=== PATIENT | male | born 1980 | race Caucasian/White ===

== ENCOUNTER 2017-06-15 07:54 | Emergency (ER) | payer BC, SELFPAY ==
[2017-06-15 07:54] VITALS: BP 161/97; PULSE 111; RESP 15; TEMP 35.9; BMI 28.0
--- NOTE | 2017-06-15 08:15 | ED.VISSUMM ---
- ER Visit Summary Date of Service: 06/15/17 Chief Complaint: [Rash to bilateral hands] History of Present Illness: The patient is a 36 M [presents to the emergency department with a rash to both hands that started about a week and a half ago. Patient is never had this happen before. Patient does have a history of psoriasis. 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 Patient did not directly handle the chemicals however there was fine residue throughout the workplace. Patient describes small vesicles on the fingers that break and use. Patient does have some itching to the area. Patient denies any trauma. Patient is never had this before.] Physical Examination: [HEENT-PERRLA, EOMI. Cranial nerves II through XII grossly intact. TMs clear. Mucous membranes moist. No adenopathy. Cardiovascular-regular rate and rhythm without murmur or ectopy Lungs-clear to auscultation, chest wall stable without crepitus or subcu emphysema Abdomen-normoactive bowel sounds, soft, nontender, no rebound or rigidity, no peritoneal signs. Extremities-intact ?4, normal range of motion, normal pulses, atraumatic]. Evaluation of the right hand reveals fine vesicles mustard seed like involving the right index and long finger. Vesicles rupture and then we put. Similar presentation noted to the left hand index finger and middle finger however to a lesser extent. No evidence for cellulitis noted. Appearance would be typical of a dyshidrotic eczema. Test Results: [None indicated] Emergency Department Course and Treatment: [Patient will be started on a topical steroid. Patient advised to follow-up with his supervisor carbon paper coating within the next 3-5 days.] Treatment Plan: [Topical steroid and dermatology follow-up]. Patient advised to keep hands moisturized. Disposition: [Discharged to home in stable condition] Impression: [Dyshidrotic eczema bilateral hands.] This note was generated with [employer] dictation software. It may contain incorrect words, spelling, and punctuation that were not noted in review of the chart prior to signing ED Disposition - Plan for ED Patient: Chief Complaint: Cellulitis
--- NOTE | 2017-06-15 08:18 | ED.DCSUM_ITS ---
- ER Visit Summary Date of Service: 06/15/17 Chief Complaint: [Rash to bilateral hands] History of Present Illness: The patient is a 36 M [presents to the emergency department with a rash to both hands that started about a week and a half ago. Patient is never had this happen before. Patient does have a history of psoriasis. 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 Patient did not directly handle the chemicals however there was fine residue throughout the workplace. Patient describes small vesicles on the fingers that break and use. Patient does have some itching to the area. Patient denies any trauma. Patient is never had this before.] Physical Examination: [HEENT-PERRLA, EOMI. Cranial nerves II through XII grossly intact. TMs clear. Mucous membranes moist. No adenopathy. Cardiovascular-regular rate and rhythm without murmur or ectopy Lungs-clear to auscultation, chest wall stable without crepitus or subcu emphysema Abdomen-normoactive bowel sounds, soft, nontender, no rebound or rigidity, no peritoneal signs. Extremities-intact ?4, normal range of motion, normal pulses, atraumatic]. Evaluation of the right hand reveals fine vesicles mustard seed like involving the right index and long finger. Vesicles rupture and then we put. Similar presentation noted to the left hand index finger and middle finger however to a lesser extent. No evidence for cellulitis noted. Appearance would be typical of a dyshidrotic eczema. Test Results: [None indicated] Emergency Department Course and Treatment: [Patient will be started on a topical steroid. Patient advised to follow-up with his travel occupational therapist within the next 3-5 days.] Treatment Plan: [Topical steroid and dermatology follow-up]. Patient advised to keep hands moisturized. Disposition: [Discharged to home in stable condition] Impression: [Dyshidrotic eczema bilateral hands.] This note was generated with [employer] dictation software. It may contain incorrect words, spelling, and punctuation that were not noted in review of the chart prior to signing ED Disposition - Plan for ED Patient: Chief Complaint: Cellulitis
--- NOTE | 2017-06-15 08:21 | DCINST.ED_ITS ---
ED Disposition - Plan for ED Patient: Chief Complaint: Cellulitis Instructions: ED Dermatitis Atopic Eczema Prescriptions: Mometasone Furoate [Elocon] 45 gm TP BID #1 oint...g. Additional Instructions: see your autobody technician in 3-5 days
== END 2017-06-15 08:33 | disposition home or self-care (01) ==
LOC: ED 08:22
PROVIDERS: Emergency Provider Emergency Medicine
DX: L30.1 Dyshidrosis [pompholyx] (principal); Z72.0 Tobacco use
CPT/HCPCS: 99282

== ENCOUNTER 2017-06-25 11:14 | Emergency (ER) | payer BC, SELFPAY ==
[2017-06-25 11:16] VITALS: BP 141/93; PULSE 85; RESP 17; TEMP 36.5; O2SAT 98; BMI 29.0
[2017-06-25 11:18] VITALS: BP 141/93; PULSE 91; RESP 17; TEMP 36.5; O2SAT 98
--- NOTE | 2017-06-25 11:36 | RAD_ITS ---
STUDY: X-RAY - RIGHT HAND REASON FOR EXAM: Male, 36 years old. Deformity of the second and third digits. Diffuse soft tissue swelling. TECHNIQUE: 3 view(s) of the hand. COMPARISON: None. FINDINGS: Normal radiocarpal articulation. Normal distal radioulnar joint. Normal visualized carpal bones. Normal carpal articulations Normal carpometacarpal articulation of the thumb. Normal second through fifth carpometacarpal joints. Normal metacarpi. Normal metacarpophalangeal joint of the thumb. Normal interphalangeal joint of the thumb. Normal proximal and distal phalanges of the thumb. Normal metacarpophalangeal joints of the second through fifth fingers. Flexion deformity at the proximal interphalangeal joint of the second and third digits. Normal phalanges of the second through fifth fingers. Soft tissue swelling. RAD/Hand Min 3 Views IMPRESSION: Diffuse soft tissue swelling. Flexion deformity at the proximal interphalangeal joints of the second and third digits. Electronically Signed: Hadley Magallon MD at 12:44 EDT Tel [phone], Service support ,
--- NOTE | 2017-06-25 13:51 | NURSING ---
DR AARON JOHNSON
--- NOTE | 2017-06-25 14:02 | ED.VISSUMM ---
- ER Visit Summary Date of Service: 06/25/17 Chief Complaint: Right hand infection History of Present Illness: The patient is a 36 M presenting secondary to right hand infection. Patient has an underlying history of psoriasis and takes Taltz. Patient states that approximately a week ago he was having a breakout of eczema on his hand. He was placed on some oral steroids and local steroids. Patient states that that rash had since improved, but over the course last 2-3 days he has had significant swelling and spreading redness coming from his right index finger going up the dorsum of his hand. Denies any presence of fevers. He does have some localized pain. 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 Physical Examination: Physical exam unremarkable except for right hand exam. Patient has chronic contractures of his index and long digits that he states are unchanged. He has limited range of motion. Patient has swelling over the proximal phalanx of the index finger with a pustule medially and spreading erythema going up to the wrist but not extending onto the wrist. No subcutaneous emphysema. Test Results: Right hand x-ray shows chronic changes in the bones as well as soft tissue swelling per radiology and my personal review Emergency Department Course and Treatment: Patient presented secondary to an infection in his right hand. X-rays showed no evidence of osteomyelitis. Patient's hand was anesthetized using digital block and then was prepped with Betadine. A tourniquet was placed around the finger, and an 11 blade was used to incise over the greatest area of purulence. Moderate amount of purulent material was expressed and was sent for culture. Wound was not vigorously explored with hemostats, but was opened with hemostats mildly. It was irrigated with sterile saline was left open. Tourniquet was removed. Patient tolerated this well. Given the fact that the patient is on immunotherapy, I do not feel comfortable with full dissection across the pulp of the patient's finger and I believe that he would best be followed up by plastic surgery. I discussed this with Dr. Alva. Patient will be placed on Bactrim, and instructed to follow-up with plastic surgery. Disposition: Discharge Impression: 1. Right index finger abscess with cellulitis 2. Incision and drainage This note was generated with [employer] software. It may contain incorrect words, spelling, and punctuation that were not noted in review of the chart prior to signing ED Disposition - Plan for ED Patient: Disposition: Home or Assisted Living Chief Complaint: Cellulitis Diagnosis: Abscess Instructions: ED Abscess IandD Prescriptions: Smz/Tmp Ds [Bactrim Ds] 1 tab PO BID #20 tab Referrals: Daniel Alva MD [STAFF PHYSICIAN] - (Call tomorrow to be seen by Friday. Return to the ED if you have fevers or spreading redness)
--- NOTE | 2017-06-25 14:08 | ED.DCSUM_ITS ---
- ER Visit Summary Date of Service: 06/25/17 Chief Complaint: Right hand infection History of Present Illness: The patient is a 36 M presenting secondary to right hand infection. Patient has an underlying history of psoriasis and takes Taltz. Patient states that approximately a week ago he was having a breakout of eczema on his hand. He was placed on some oral steroids and local steroids. Patient states that that rash had since improved, but over the course last 2- 3 days he has had significant swelling and spreading redness coming from his right index finger going up the dorsum of his hand. Denies any presence of fevers. He does have some localized pain. Patient saw his critical care technician recommended to them emergency department. Physical Examination: Physical exam unremarkable except for right hand exam. Patient has chronic contractures of his index and long digits that he states are unchanged. He has limited range of motion. Patient has swelling over the proximal phalanx of the index finger with a pustule medially and spreading erythema going up to the wrist but not extending onto the wrist. No subcutaneous emphysema. Test Results: Right hand x-ray shows chronic changes in the bones as well as soft tissue swelling per radiology and my personal review Emergency Department Course and Treatment: Patient presented secondary to an infection in his right hand. X-rays showed no evidence of osteomyelitis. Patient's hand was anesthetized using digital block and then was prepped with Betadine. A tourniquet was placed around the finger, and an 11 blade was used to incise over the greatest area of purulence. Moderate amount of purulent material was expressed and was sent for culture. Wound was not vigorously explored with hemostats, but was opened with hemostats mildly. It was irrigated with sterile saline was left open. Tourniquet was removed. Patient tolerated this well. Given the fact that the patient is on immunotherapy, I do not feel comfortable with full dissection across the pulp of the patient's finger and I believe that he would best be followed up by plastic surgery. I discussed this with Dr. Alva. Patient will be placed on Bactrim, and instructed to follow-up with plastic surgery. Disposition: Discharge Impression: 1. Right index finger abscess with cellulitis 2. Incision and drainage This note was generated with [employer] software. It may contain incorrect words, spelling, and punctuation that were not noted in review of the chart prior to signing ED Disposition - Plan for ED Patient: Disposition: Home or Assisted Living Chief Complaint: Cellulitis Diagnosis: Abscess Instructions: ED Abscess IandD Prescriptions: Smz/Tmp Ds [Bactrim Ds] 1 tab PO BID #20 tab Referrals: Daniel Alva MD [STAFF PHYSICIAN] - (Call tomorrow to be seen by Friday. Return to the ED if you have fevers or spreading redness)
[2017-06-25] MEDS: Smz/Tmp Ds Tablet 1 TABLET PO (14:25)
[2017-06-25 14:41] VITALS: BP 138/70; PULSE 74; RESP 18; O2SAT 98; O2SAT 99
== END 2017-06-25 14:44 | disposition home or self-care (01) ==
PROVIDERS: Emergency Provider Emergency Medicine
DX: L03.011 Cellulitis of right finger (principal); L40.9 Psoriasis, unspecified
CPT/HCPCS: 26010; 10060; 73130; 87070; 87075; 87077; 87186; 87205; 99283

== ENCOUNTER 2017-06-26 23:34 | Inpatient (IN) | payer BC, SELFPAY ==
[2017-06-26 23:34] VITALS: BP 156/94; PULSE 89; RESP 20; TEMP 36.6; O2SAT 94; BMI 28.9
[2017-06-27] VITALS (10 sets, daily range): BP systolic 127–156; BP diastolic 69–91; PULSE 79–98; RESP 16–18; TEMP 36.5–37.4; O2SAT 94–98; BMI 28.8
[2017-06-27 00:10] LABS: Absolute Lymphocyte Count 2.62 X10^3/ul (0.83-4.51); Absolute Neutrophil Count 7.9 X10^3/uL (2.0-7.7); Basophil# 0.02 X10^3/uL; Basophil% 0.2 % (0-1); Eosinophil# 0.56 X10^3/uL; Eosinophils% 4.7 % (0-5); Hematocrit 47.3 % (40-54); Hemoglobin 16.4 g/dl (13.0-16.5); Lymphocyte # 2.62 X10^3/ul (4.0); Lymphocyte % 22.1 % (19-41); Mean Corp Hgb Conc 34.7 g/gl (32-36); Mean Corpuscular Hgb 32.5 pg (27.0-32.0); Mean Corpuscular Volume 93.7 fL (80-94); Mean Platelet Vol. 10.9 fl (6.2-12.0); Monocyte# 0.74 X10^3/uL; Monocyte% 6.2 % (0-10); Neutrophil # 7.88 X10^3/uL (2.7-7.7); Neutrophil % 66.5 % (47-70); Platelet Count 134 K/mm3 (150-450); RBC Distribution Width CV 12.4 % (11.6-14.6); RBC Distribution Width SD 41.6 fl (35.1-43.9); Red Blood Count 5.05 M/mm3 (4.6-6.2); White Blood Count 11.9 K/mm3 (4.4-11.0)
[2017-06-27 00:13] LABS: POSITIVE COUNT NO; POSITIVE DIFFERENTIAL NO; POSITIVE MORPHOLOGY NO
--- NOTE | 2017-06-27 00:16 | ED.VISSUMM ---
- ER Visit Summary Date of Service: 06/27/17 Chief Complaint: [Redness and swelling to right hand] History of Present Illness: The patient is a 36 M [presents to the emergency department with redness and swelling to his right hand that started about 4 days ago. Patient states initially had swelling to the dorsum of the second MCP joint that progressively has worsened. Patient was seen in the emergency department yesterday and had an attempted I&D of his right index finger. Patient was started on Bactrim. Patient was advised to follow-up with Dr. Alva. Patient states that he feels that the redness and swelling has actually worsened. Patient also gives history of being in the emergency department several weeks ago for a rash to his fingers on his right and left hand. At that time patient was diagnosed with dyshidrotic eczema and started on topical steroids. Patient was seen by his home health occupational therapist who agreed with the diagnosis and asked him to continue the topical steroids but also added oral prednisone.] Physical Examination: [Right hand-patient has soft tissue swelling over the dorsum of the second MCP joint and the dorsum of the hand diffusely as well as onto the dorsum of the wrist. There is faint erythema noted. There is a small 1 cm incision noted to the lateral aspect of the right index finger. The finger is diffusely edematous and swollen. 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 Patient has CBC with differential that showed a elevated white blood cell count of 11.9, hemoglobin 16, hematocrit 47. Emergency Department Course and Treatment: [Patient was started on Unasyn IV] Treatment Plan: [Admit for IV antibiotics and possible surgical consultation.] Disposition: [Admit] Impression: Cellulitis right hand-failed outpatient therapy [] This note was generated with [employer] dictation software. It may contain incorrect words, spelling, and punctuation that were not noted in review of the chart prior to signing ED Disposition - Plan for ED Patient: Chief Complaint: Cellulitis Referrals: Care Physician,No Primary [Primary Care Provider] -
[2017-06-27 00:18] LABS: Anion Gap 6 (5-15); BUN 14 mg/dL (7-18); BUN/Creat Ratio 10.3 RATIO (10-20); Calcium,Total 9.4 mg/dL (8.5-10.1); Chloride 104 mmol/L (98-107); Creatinine, Serum 1.36 mg/dL (0.70-1.30); EST Glomerular Filtration Rate 62 mL/min (>60); Est Glom Filt Rate - Afr Amer 75 mL/min (>60); Estimated Creatinine Clearance 85.63 ml/min; Glucose 127 mg/dL (74-106); Potassium 4.1 mmol/L (3.5-5.1); Sodium Level 140 mmol/L (136-145)
--- NOTE | 2017-06-27 00:22 | ED.DCSUM_ITS ---
- ER Visit Summary Date of Service: 06/27/17 Chief Complaint: [Redness and swelling to right hand] History of Present Illness: The patient is a 36 M [presents to the emergency department with redness and swelling to his right hand that started about 4 days ago. Patient states initially had swelling to the dorsum of the second MCP joint that progressively has worsened. Patient was seen in the emergency department yesterday and had an attempted I&D of his right index finger. Patient was started on Bactrim. Patient was advised to follow-up with Dr. Alva. Patient states that he feels that the redness and swelling has actually worsened. Patient also gives history of being in the emergency department several weeks ago for a rash to his fingers on his right and left hand. At that time patient was diagnosed with dyshidrotic eczema and started on topical steroids. Patient was seen by his manager export who agreed with the diagnosis and asked him to continue the topical steroids but also added oral prednisone.] Physical Examination: [Right hand-patient has soft tissue swelling over the dorsum of the second MCP joint and the dorsum of the hand diffusely as well as onto the dorsum of the wrist. There is faint erythema noted. There is a small 1 cm incision noted to the lateral aspect of the right index finger. The finger is diffusely edematous and swollen. 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 Patient has CBC with differential that showed a elevated white blood cell count of 11.9, hemoglobin 16, hematocrit 47. Emergency Department Course and Treatment: [Patient was started on Unasyn IV] Treatment Plan: [Admit for IV antibiotics and possible surgical consultation.] Disposition: [Admit] Impression: Cellulitis right hand-failed outpatient therapy [] This note was generated with [employer] dictation software. It may contain incorrect words, spelling, and punctuation that were not noted in review of the chart prior to signing ED Disposition - Plan for ED Patient: Chief Complaint: Cellulitis Referrals: Care Physician,No Primary [Primary Care Provider] -
--- NOTE | 2017-06-27 00:33 | HP.PCM_ITS ---
Problem List (1) Psoriasis Status: Chronic History of Present Illness Date of Admission: 06/27/17 Chief Complaint: Right hand pain, redness and swelling. The patient is a 36 year old M with past medical history as mentioned above presented to the emergency room because of right hand pain, swelling and redness. His illness started this past Friday which is 3 days ago with minimal swelling and erythema around the knuckle of the right index finger and the next day, he started having pain on the knuckles of the index and right middle fingers, dull aching pain, 4-5 in severity, not radiating, associated with increasing redness and swelling, relieved by keeping his right arm elevated for a couple of months and without relieving factors. He denies fever or chills. On June 25, 2017 which is 2 days ago, he came to the emergency room because of the swelling, redness and pain on the dorsal aspect of the right hand, found to have right index cellulitis/abscess and he underwent bedside incision and drainage by ER physician and he was discharged home on Bactrim. Patient took Bactrim at home and he mentioned that the erythema and swelling of the right hand has been worsening and he came back today for evaluation. Swelling and erythema of the right hand numbness involving the dorsal aspect of the right hand around knuckles and extending to the above right wrist. Wound culture from the right index finger abscess was sent on June 25, 2012 and revealed staph aureus, final is pending. In the emergency room, his vital signs were stable. He has mild leukocytosis and creatinine of 1.36. X-ray of the right hand dominant June, and revealed diffuse soft tissue swelling. He is being admitted for right index finger cellulitis/abscess status post incision and drainage, right hand cellulitis with failure of outpatient therapy Past Medical History Past Medical History (Chronic Problems): Chronic Problems Psoriasis (Chronic) Allergies No Known Allergies Allergy (Verified 06/26/17 23:36) Home Medications: Ambulatory Orders Medication Instructions Recorded Ixekizumab [Taltz Autoinjector (2 80 mg SQ Q30D 06/15/17 Pack)] Smz/Tmp Ds [Bactrim Ds] 1 tab PO BID #20 tab 06/25/17 Surgical History: no surgical history Psychiatric History: No pertinent psych hx Lives: Spouse/ Significant Other Smoking Status: Current every day smoker Alcohol: None Drugs: None - *Family History Maternal History Items: No pertinent history Paternal History Items: No pertinent history Review of Systems Constitutional: Denies: Anorexia, Chills, Fever, Weakness Eyes: Denies: Blurred vision, Double vision, Drainage, Redness HEENT: Denies: Difficulty Hearing, Ear Pain, Eye Pain, Nasal Congestion, Sore Throat Cardiovascular: Denies: Chest Pain, Chest Pressure, Chest Tightness, Heaviness, Light Headedness, Palpitations, Syncope Respiratory: Denies: Cough, Pleuritic Pain, Shortness of Breath, Sputum production, Wheezing Gastrointestinal: Denies: Abdominal Pain, Constipation, Diarrhea, Nausea, Vomiting Genitourinary: Denies: Dysuria, Frequency, Hesitancy Musculoskeletal: Reports: Hand Pain. Denies: Arm Pain, Back Pain, Foot Pain Skin: Denies: Dryness, Rash Neurological: Denies: Balance problems, Blurred vision, Double vision, Change in Speech, Slurred speech, Incoordination, Numbness Psychiatric: Denies: Anxiety, Depression Endocrine: Denies: Change in Body Habitus, Polydipsia VTE Information - Inpt Only VTE Present on Admission: No VTE Mechan Device Prophylaxis: None VTE Pharm Prophylaxis ordered?: No - Physical Exam General: Alert, Oriented x3, Cooperative, No apparent distress HEENT: Atraumatic, PERRLA, EOMI Oral: Moist Mucosa, No Gingival or Mucosal Lesions/ Ulcerations Neck: Supple, No JVD, Negative Carotid Bruits, Trachea Midline, Thyroid Normal Size and Texture Lungs: Clear to auscultation, Normal air movement, No rhonchi, No wheeze, No rales Cardiovascular: Regular rate, Regular Rhythm, Normal S1, Normal S2, No murmurs, PMI Normal Abdomen: Bowel Sounds Present, Soft, Non Tender, Non-Distended, No Hepato- splenomegaly Extremities: No clubbing, No cyanosis, No edema Skin: No rashes, Ulcer/ Wound, - - Right hand: Swelling and erythema involving the dorsal aspect of the right hand and extending down to the index and middle finger and extending up to the just above the right wrist. Surgical incision on the medial aspect of the right index finger. Lymphatic: No Cervical, Supraclavicular, or Inguinal Adenopathy Neurological: Cranial nerves II-XII grossly intact, Motor Exam 5/5 strength throughout Psych/Mental Status: Normal Affect, Appropriate, Alert and oriented to time, place, person, mood and affect Vital Signs Temp Pulse Resp BP Pulse Ox 97.8 F 94 18 156/89 H 94 06/26/17 23:34 06/27/17 00:24 06/27/17 00:24 06/27/17 00:24 06/27/17 00:24 Oxygen Delivery Method Room Air Weight: 225 lb 8.526 oz Body Mass Index (BMI) 28.9 Laboratory Tests Past 24 Hrs 06/26/17 06/26/17 23:57 23:57 WBC 11.9 H RBC 5.05 Hgb 16.4 Hct 47.3 MCV 93.7 MCH 32.5 H MCHC 34.7 RDW 12.4 RDW Differential 41.6 Plt Count 134 L MPV 10.9 Immature Gran % (Auto) 0.300 Neut % (Auto) 66.5 Lymph % (Auto) 22.1 [place] % (Auto) 6.2 Eos % (Auto) 4.7 Baso % (Auto) 0.2 Absolute Neuts (auto) 7.9 H Absolute Lymphs (auto) 2.62 Total Counted Not Reportable Sodium 140 Potassium 4.1 Chloride 104 Carbon Dioxide 30.0 Anion Gap 6 BUN 14 Creatinine 1.36 H Estim Creat Clear Calc 85.63 Est GFR (MDRD) Af Amer 75 Est GFR (MDRD) Non-Af 62 BUN/Creatinine Ratio 10.3 Glucose 127 H Calcium 9.4 Assessment/Plan This is a 36 years old male patient presented to the emergency room because of worsening right hand pain, redness and swelling after he had incision and drainage for right index finger cellulitis/abscess on June 25, 2017 and he was discharged home from the emergency room on Bactrim and he came back because of worsening symptoms. #1 right index finger/right hand cellulitis/right index finger abscess: Status post incision and drainage that was done on June 25, 2017 with failure of outpatient therapy. X-ray on that day revealed soft tissue swelling. Patient has mild leukocytosis. Wound culture from that incision and drainage revealed staph aureus, final is pending. He was discharged on Bactrim. He is supposed to see Dr. Alva as outpatient this coming Friday. Plan: Admit to [facility] floor , IV fluids, MRSA wound screen, Tylenol as needed for pain, IV Unasyn every 8 hours, repeat CBC and BMP tomorrow morning, follow wound cultures. #2 dehydration: Indicated by creatinine of 1.36, unknown baseline creatinine. Plan for IV fluids, input output chart, repeat BMP tomorrow morning. #3 psoriasis: He is on Ixekizumab injections q. monthly stable, in remission.. #4 DVT prophylaxis: Low risk patient, no prophylaxis indicated. This note was generated with [employer] dictation software. It may contain incorrect words, spelling, and punctuation that were not noted in checking the note before signing. Code Visit Inpatient E&M: 07451 Init Hosp L2
[2017-06-27] MEDS: 0.9% Normal Saline 1,000 ML 100 ML IV ×2 (02:41→16:17)
[2017-06-27] MEDS: Acetaminophen 325 MG Tablet 650 MG PO (02:46)
[2017-06-27 03:54] LABS: Probe Check PASS; Staph aureus DNA By PCR POSITIVE (Negative)
[2017-06-27 03:55] LABS: M R Staph aureus DNA By PCR POSITIVE (Negative)
[2017-06-27] MEDS: oxyCODONE 5 MG Tablet PO (04:33)
--- NOTE | 2017-06-27 04:45 | PCM.RX.CS ---
Consult Pharmacy has been consulted to manage selected antiobiotic: Vancomycin Type of Consult: New start Suspected Infection: Skin/Soft tissue Prior Doses of Antibiotics Received/Current Regimen: Medications Vancomycin HCl 2,000 mg/ (Dextrose) 540 mls @ 250 mls/hr IV RX TO DOSE ONE Stop: 06/27/17 06:06 Last Admin: 06/27/17 04:33 Dose: 250 mls/hr Labs: Sodium 140 mmol/L (136-145) 06/26/17 23:57 Potassium 4.1 mmol/L (3.5-5.1) 06/26/17 23:57 Chloride 104 mmol/L (98-107) 06/26/17 23:57 Carbon Dioxide 30.0 mmol/L (21.0-32.0) 06/26/17 23:57 Anion Gap 6 (5-15) 06/26/17 23:57 BUN 14 mg/dL (7-18) 06/26/17 23:57 Creatinine 1.36 mg/dL (0.70-1.30) H 06/26/17 23:57 Est GFR (MDRD) Af Amer 75 mL/min (>60) 06/26/17 23:57 Est GFR (MDRD) Non-Af 62 mL/min (>60) 06/26/17 23:57 BUN/Creatinine Ratio 10.3 RATIO (10-20) 06/26/17 23:57 Glucose 127 mg/dL (74-106) H 06/26/17 23:57 Weight used for dosin.7 kg Estimated Creatinine Clearance: 106 Goal Trough: 10-15 mcg/mL Pharmacy Plan for Drug Dosing: Pharmacy Service will continue to monitor and adjust dosing as required. Follow-Up Labs: Trough Vancomycin Labs to be done on [date and time ordered]: 06/28/17 @4564
[2017-06-27 06:03] LABS: Absolute Lymphocyte Count 1.96 X10^3/ul (0.83-4.51); Absolute Neutrophil Count 9.4 X10^3/uL (2.0-7.7); Basophil# 0.02 X10^3/uL; Basophil% 0.2 % (0-1); Eosinophils% 4.7 % (0-5); Hematocrit 45.4 % (40-54); Hemoglobin 15.9 g/dl (13.0-16.5); Lymphocyte # 1.96 X10^3/ul (4.0); Lymphocyte % 15.2 % (19-41); Mean Corpuscular Hgb 32.5 pg (27.0-32.0); Mean Corpuscular Volume 92.8 fL (80-94); Mean Platelet Vol. 11.2 fl (6.2-12.0); Neutrophil # 9.35 X10^3/uL (2.7-7.7); Neutrophil % 72.6 % (47-70); Platelet Count 136 K/mm3 (150-450); RBC Distribution Width CV 12.2 % (11.6-14.6); Red Blood Count 4.89 M/mm3 (4.6-6.2); White Blood Count 12.9 K/mm3 (4.4-11.0)
[2017-06-27 06:05] LABS: POSITIVE COUNT NO; POSITIVE DIFFERENTIAL NO; POSITIVE MORPHOLOGY NO
[2017-06-27 06:31] LABS: Anion Gap 8 (5-15); BUN 12 mg/dL (7-18); BUN/Creat Ratio 9.1 RATIO (10-20); Calcium,Total 8.7 mg/dL (8.5-10.1); Chloride 103 mmol/L (98-107); Creatinine, Serum 1.32 mg/dL (0.70-1.30); EST Glomerular Filtration Rate 64 mL/min (>60); Est Glom Filt Rate - Afr Amer 78 mL/min (>60); Estimated Creatinine Clearance 88.22 ml/min; Glucose 147 mg/dL (74-106); Potassium 3.9 mmol/L (3.5-5.1); Sodium Level 137 mmol/L (136-145)
[2017-06-27] MEDS: 0.9% NaCl Peripheral Flush Adult/Peds IV ×5 (10:30→21:34)
[2017-06-27] MEDS: Morphine 2 MG/ML Syringe IV ×3 (10:31→21:33)
--- NOTE | 2017-06-27 10:51 | CASEMGMT ---
Addendum entered by Jaleesa Mendez 06/27/17 15:20: SW spoke w/Dr. Alva, he states pt will need 1-2 weeks of IV Vancomycin at discharge. SW spoke w/pt in room, his father is present. His father brought the COBRA papers from his truck. Pt also spoke w/his new employer, they are flexible with his start date, his insurance coverage will start the day he starts. Pt states the doctor said he may be able to start next week. Pt is to fly to [place] next week however. SW asked pt to think about if he wants to be doing IV antibiotics while starting a new job, or may want to consider waiting until he is done with the IV antibiotics. Pt reviewed the COBRA paperwork and asked about the coverage. SW explained that COBRA should be retroactive to June 22, when he lost his insurance, but to call and check. If it is retroactive to June 22, then the ER visits and hospitalizations would be covered, along with the IV's. SW and pt reviewed the paperwork, the cost is $663/month, pt does think this is affordable. He is going to go online and see if he can sign up for COBRA now. CM aware of situation, SW/CM will follow up on Friday. DRE Calvin, MATERIALS RESEARCH ENGINEER Original Note: SW spoke w/our financial dept, they did not see pt as pt is on contact precautions, pt does not have insurance at present. SW met w/pt in room, in regard to insurance. Pt explains that he just left his old job on the , and his insurance terminated on the . Pt states he was to start a new job next Friday. He states that he is over income for HCAP and Medicaid. SW explained pt may want to call HR at his previous company, and see if he can do COBRA for a month, that way his hospital stay would be covered. Pt states he has the information in his truck he thinks for COBRA. SW encouraged pt to look into it, and that often COBRA goes retro to the start of when coverage ended. SW encouraged pt to call HR from his old company. Pt states that he is waiting for HR to call him back from his new company, and see if they may cover him ahead of time. Pt is very hopeful they will hold the position for him. SW did give pt a few resources, including [facility] assist, [employer], and [employer]. MIKE again encouraged pt to follow up with his old company, and if he does get insurance coverage, to let our financial dept here know. MIKE let our financial dept know the above information as well. Otherwise, no further needs anticipated at this time. DRE Calvin, MATERIALS RESEARCH ENGINEER
[2017-06-27] MEDS: Ketorolac 15 MG/ML Vial IV ×3 (11:58→23:45)
--- NOTE | 2017-06-27 14:25 | PCM.CONS.GEN ---
Reason for Consult Date of Consultation: 06/27/17 Reason for Consultation: Right hand infection with abscess right index finger s/p I&D. REFERRING PHYSICIAN: Dr. Mills. SPECIAL EDUCATION DIRECTOR: Dr. Alva. History of Present Illness: The patient is a 36 year old M with past medical history of psoriatic arthritis and is on immunotherapy with Ixekizumab presented to the emergency room because of increasing pain, swelling and redness in his right hand. His symptoms started this about a week ago with minimal swelling and erythema around the MP joint of the right index finger. Over the next few days, he started having increasing pain on the MP joints of the index and right long fingers with associated redness and swelling. He denies fever or chills. A few days ago on June 25, 2017, he came to the emergency room because of the swelling, redness and pain on the dorsal aspect of the right hand. It was noted he had right index cellulitis/abscess and he underwent bedside incision and drainage by ER physician and he was discharged home on Bactrim. Patient took Bactrim at home and he noted his symptomatology worsening. He came back to the ED today and was admitted. The swelling and erythema of the right hand involved the dorsum of the right hand and extended to the right wrist. Wound culture from the right index finger abscess was sent on June 25, 2017 and revealed MRSA. In the emergency room, his vital signs were stable. He had a WBC of 11.9. X-ray of the right hand from June 25, 2017 in the ED revealed diffuse soft tissue swelling. He is being admitted for IV antibiotic therapy with Vancomycin because of a failure of outpatient therapy. I was asked to evaluate this patient for surgical options for treatment. Past Medical History Past Medical History (Chronic Problems): Chronic Problems (Last Updated 07/07/17 @ 14:25 by Hedy Whitten) Psoriatic arthritis (Chronic) Psoriasis (Chronic) Allergies No Known Allergies Allergy (Verified 06/26/17 23:36) Current Medications Acetaminophen (Tylenol) 650 mg PO Q6H PRN Vancomycin HCl 1,250 mg/ (Sodium Chloride) 275 mls @ 183.333 mls/hr IV Q12H NATAN Ketorolac Tromethamine (Toradol) 15 mg IV Q6 NATAN Morphine Sulfate () 2 mg IV Q3H PRN Ondansetron HCl (Zofran) 4 mg IV Q6H PRN Oxycodone HCl (Oxyir) 5 mg PO Q6H PRN Home Medications: Ambulatory Orders Medication Instructions Recorded Ixekizumab [Taltz Autoinjector (2 80 mg SQ Q30D 06/15/17 Pack)] Vancomycin 1,500 mg IV Q12H 39 Days #78 vial 06/30/17 Surgical History: no surgical history Psychiatric History: No pertinent psych hx Lives: Spouse/ Significant Other Smoking Status: Current every day smoker Alcohol: None Drugs: None - *Family History Maternal History Items: No pertinent history Paternal History Items: No pertinent history Review of Systems Comment: Constitutional: Denies: Anorexia, Chills, Fever, Weakness. Eyes: Denies: Blurred vision, Double vision, Drainage, Redness. HEENT: Denies: Difficulty Hearing, Ear Pain, Eye Pain, Nasal Congestion, Sore Throat. Cardiovascular: Denies: Chest Pain, Chest Pressure, Chest Tightness, Heaviness, Light Headedness, Palpitations, Syncope. Respiratory: Denies: Cough, Pleuritic Pain, Shortness of Breath, Sputum production, Wheezing. Gastrointestinal: Denies: Abdominal Pain, Constipation, Diarrhea, Nausea, Vomiting. Genitourinary: Denies: Dysuria, Frequency, Hesitancy. Musculoskeletal: Reports: Hand Pain. Denies: Arm Pain, Back Pain, Foot Pain. Skin: Denies: Dryness, Rash. Neurological: Denies: Balance problems, Blurred vision, Double vision, Change in Speech, Slurred speech, Incoordination, Numbness. Psychiatric: Denies: Anxiety, Depression. Endocrine: Denies: Change in Body Habitus, Polydipsia - Physical Exam General: Alert, Oriented. HEENT: PERRLA, EOMI Oral: Moist Mucosa Neck: Supple, nontender. No cervical adenopathy. Lungs: Clear to auscultation. Cardiovascular: Regular rate, Regular Rhythm. Abdomen: Soft, Non-Distended. Extremities: No clubbing, No cyanosis, Mild edema noted dorsum right hand extending onto fingers. Skin: Ulcer/ Wound, - - Right hand: small wound ulnar aspect right index finger near PIP joint from I&D in ED. Intermittent drainage noted., - - Swelling is over dorsum of the hand extending to the dorsal aspect MP joints right index finger and right long finger. No fluctuance noted. Minimal tenderness noted. The erythema has improved from admission based on the markings made at the leading edge of the erythema. This is result of IV antibiotics and elevation. Has flexion contractures of his index and long fingers at the PIP joints. He can flex his MP joints. He can flex and extend his other fingers. Fingers are warm with good capillary refill. Radial pulses are palpable. Lymphatic: No Cervical adenopathy. No axillary adenopathy. Neurological: Cranial nerves II-XII grossly intact. Psych/Mental Status: Normal Affect, Appropriate. Vital Signs Temp Pulse Resp BP Pulse Ox 98.2 F 90 16 127/69 H 98 06/27/17 09:05 06/27/17 09:05 06/27/17 09:05 06/27/17 09:05 06/27/17 09:05 Oxygen Delivery Method Room Air Weight: 224 lb 3.362 oz Body Mass Index (BMI) 28.8 Intake and Output for Last 24 Hours 06/25/17 06/26/17 06/27/17 23:59 23:59 23:59 Intake Total 1761 / 1761 Output Total 850 / 850 Balance 911 / 911 Laboratory Tests Past 24 Hrs 06/27/17 06/27/17 06/27/17 01:15 05:57 05:57 WBC 12.9 H RBC 4.89 Hgb 15.9 Hct 45.4 MCV 92.8 MCH 32.5 H MCHC 35.0 RDW 12.2 RDW Differential 41.0 Plt Count 136 L MPV 11.2 Immature Gran % (Auto) 0.300 Neut % (Auto) 72.6 H Lymph % (Auto) 15.2 L [place] % (Auto) 7.0 Eos % (Auto) 4.7 Baso % (Auto) 0.2 Absolute Neuts (auto) 9.4 H Absolute Lymphs (auto) 1.96 Total Counted Not Reportable Sodium 137 Potassium 3.9 Chloride 103 Carbon Dioxide 26.0 Anion Gap 8 BUN 12 Creatinine 1.32 H Estim Creat Clear Calc 88.22 Est GFR (MDRD) Af Amer 78 Est GFR (MDRD) Non-Af 64 BUN/Creatinine Ratio 9.1 L Glucose 147 H Calcium 8.7 S.aureus Protein A PCR POSITIVE H MRSA (PCR) POSITIVE H Assessment/Plan 1. Abscess ulnar aspect right index finger near PIP joint s/p I&D in ED. 2. MRSA. 3. Cellulitis dorsum right hand with extension over MP joints right index finger and right long finger. 4. 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 5. Psoriatic arthritis and on immunotherapy (Ixekizumab). Patient is on Vancomycin for the draining wound after I&D in the ED. The MRSA screen is positive. Will order a PICC line as he will need IV antibiotics after discharge. Will order a CT to look for any deeper focus of infection. Patient's pain is improving. Seems to be demarcating over the MP joints right index finger and right long finger. Swelling is slowly resolving. Anticipate at least 2 weeks of IV Vancomycin. Will reassess in my office after discharge to determine if we can switch to po antibiotics or if we need to continue the IV Vancomycin. Since he is on Ixekizumab, I may extend the Vancomycin. No need for surgery today. Will reassess every morning to determine if operative I&D is necessary or if we can continue the IV antibiotics. Anticipate increased metabolic demands from the infection. Will check a Prealbumin and encourage nutritional supplementation with protein to help the healing process. Even though he has flexion contractures involving the PIP joints of right index and right long fingers, he is encouraged to do range of motion exercises to minimize stiffness in his other fingers. He may need OT after discharge. Patient was informed of the risks and complications of the procedure including alternatives to surgery. These were discussed with him personally. He voices understanding and wishes to proceed. Some of the risks that were discussed included but were not inclusive of failure to diagnose including symptom relief, pain, infection, numbness, stiffness, loss of digit, RSD, need for further surgery, contracture, and wound healing problems. He voices understanding and wishes to proceed. He understands that surgery may be necessary. Ideally I would like to wait a few days to see how well the infection demarcates to make any surgical intervention a little less involved. Since he is on Ixekizumab, wound healing will be delayed and problematic. Any surgical wounds that are created will need to be closed as soon as the infection is under control. The initial wounds would be treated with daily Silver dressing changes. So I would like to minimize my operative intervention to minimize healing problems. I doubt the wound on the index finger created by the ED with the I&D will probably not heal without further operative intervention. So that will be addressed at the same time as any other I&D that may be necessary over the next few days. At this time, there seems to be some demarcation around the MP joints of the index and long fingers. Code Visit Inpatient E&M: 60906 Init Hosp L2 - ICD-10 - L02.511, L03.113, A49.02, M24.541, L40.50
--- NOTE | 2017-06-27 14:26 | CT_ITS ---
STUDY: CT SCAN OF THE HEAD AND RIGHT REASON FOR EXAM: Male, 36 years old. Swelling and erythema of the dorsal aspect of the right hand with extension to the index and third fingers. Recent surgical incision along the medial aspect of the right index finger. RADIATION DOSAGE (If Supplied By Facility): CTDIvol = ( 24.58 ) mGy, DLP = ( 683.53 ) mGycm. Individualized dose optimization techniques were used for this CT.? TECHNIQUE: Multiple axial tomographic images were obtained without intravenous contrast administration. Sagittal and coronal reconstruction was obtained as well. COMPARISON: Comparison is made with prior radiograph dated June 25, 2017. FINDINGS: There is flexion deformity of the proximal interphalangeal joint of the second and third digits. Diffuse soft tissue swelling involving the metacarpal phalangeal joints of the second and third digits worse involving the third digit. No bony destruction is seen. No radiopaque foreign body is present. CT/Extremity Upper WITH Contrast IMPRESSION: Flexion deformity of the proximal interphalangeal joints of the second and third digits with soft tissue swelling at the metacarpophalangeal joints involving the second and third digits. Electronically Signed: Hadley Magallon MD at 15:35 EDT Tel [phone], Service support ,
--- NOTE | 2017-06-27 14:30 | NURSING ---
This RN now the primary RN for this patient at this time.
--- NOTE | 2017-06-27 15:13 | PCM.HOSP.N ---
Hospitalist Note The patient was admitted earlier today by Dr. Jeter and I reviewed his H&P. I also saw the patient, evaluated her and obtained relevant history, performed a clinical exam reviewed diagnostic data. This is a 36 year old M with psoriatic arthritis on underwent right hand infection, he was seen earlier on in the week at the emergency room and underwent incision and drainage the culture is growing MRSA and we have changed antibiotic to IV vancomycin. Dr. Alva consulted for possible I&D.
[2017-06-28 03:29] VITALS: BP 116/54; PULSE 86; RESP 16; TEMP 37.1; O2SAT 97
[2017-06-28] MEDS: oxyCODONE 5 MG Tablet PO (03:31)
[2017-06-28 03:39] VITALS: PULSE 86; RESP 16; O2SAT 97
[2017-06-28] MEDS: 0.9% Normal Saline 1,000 ML 100 ML IV ×2 (04:51→16:16)
[2017-06-28] MEDS: Ketorolac 15 MG/ML Vial IV ×3 (05:04→18:54)
[2017-06-28] MEDS: Acetaminophen 325 MG Tablet 650 MG PO ×2 (05:04→16:19)
[2017-06-28] MEDS: 0.9% NaCl Peripheral Flush Adult/Peds IV ×2 (05:37→18:55)
[2017-06-28 05:58] LABS: Hematocrit 40.6 % (40-54); Mean Corp Hgb Conc 34.5 g/gl (32-36); Mean Corpuscular Hgb 32.8 pg (27.0-32.0); Mean Corpuscular Volume 95.1 fL (80-94); Mean Platelet Vol. 10.9 fl (6.2-12.0); Platelet Count 130 K/mm3 (150-450); RBC Distribution Width CV 12.1 % (11.6-14.6); RBC Distribution Width SD 41.3 fl (35.1-43.9); Red Blood Count 4.27 M/mm3 (4.6-6.2); Scan Indicated on CBC? Y/N NO; White Blood Count 10.4 K/mm3 (4.4-11.0)
[2017-06-28 06:32] LABS: Erythrocyte Sedimentation Rate 9 mm/hr (0-15)
[2017-06-28 06:54] LABS: ALB/GLOB Ratio 0.9 RATIO (0.9-2.4); AST(SGOT) 11 U/L (15-37); Alanine Aminotransfer ALT/SGPT 27 U/L (16-61); Albumin, Serum 2.7 g/dL (3.2-5.0); Alkaline Phosphatase 77 U/L (45-117); Anion Gap 8 (5-15); BUN 11 mg/dL (7-18); BUN/Creat Ratio 10.6 RATIO (10-20); Calcium,Total 7.8 mg/dL (8.5-10.1); Chloride 107 mmol/L (98-107); Creatinine, Serum 1.04 mg/dL (0.70-1.30); EST Glomerular Filtration Rate 85 mL/min (>60); Est Glom Filt Rate - Afr Amer 102 mL/min (>60); Estimated Creatinine Clearance 111.97 ml/min; Globulin 2.9 g/dL (2.2-4.2); Glucose 93 mg/dL (74-106); Prealbumin 16.1 mg/dL (20.0-40.0); Protein, Total 5.6 g/dL (6.4-8.2); Sodium Level 141 mmol/L (136-145)
[2017-06-28 08:29] VITALS: BP 117/70; PULSE 77; RESP 18; TEMP 36.8; O2SAT 97
--- NOTE | 2017-06-28 08:29 | PCM.PN.SRG ---
Subjective: Patient resting comfortably. He states he is able to move his fingers right hand with minimal discomfort. PICC line placed yesterday. - Physical Exam General: Alert, Oriented x3 HEENT: PERRLA, EOMI Neck: Supple Lungs: Clear to auscultation Cardiovascular: Regular rate, Regular Rhythm Abdomen: Soft, Non-Distended Extremities: No clubbing, No cyanosis, Edema - mild edema dorsum right hand with some extension onto fingers., Peripheral Pulses Normal Skin: Ulcer/ Wound - small wound ulnar aspect right index finger near PIP joint from I&D in ED. Intermittent drainage noted., - - The most swelling is over the dorsal aspect MP joints right index finger and right long finger. No fluctuance noted. Minimal tenderness noted. Lymphatic: - - no axillary adenopathy. Neurological: Cranial nerves II-XII grossly intact Psych/Mental Status: Normal Affect, Appropriate Vital Signs Temp Pulse Resp BP Pulse Ox 98.7 F 86 16 116/54 L 97 06/28/17 03:29 06/28/17 03:39 06/28/17 03:39 06/28/17 03:29 06/28/17 03:39 Oxygen Delivery Method Room Air Weight: 224 lb 3.362 oz Body Mass Index (BMI) 28.8 Intake and Output for Last 24 Hours 06/26/17 06/27/17 06/28/17 23:59 23:59 23:59 Intake Total 4936 / 4936 760 / 760 Output Total 1750 / 1750 Balance 3186 / 3186 760 / 760 Laboratory Tests Past 24 Hrs 06/28/17 06/28/17 05:30 05:30 WBC 10.4 RBC 4.27 L Hgb 14.0 Hct 40.6 MCV 95.1 H MCH 32.8 H MCHC 34.5 RDW 12.1 RDW Differential 41.3 Plt Count 130 L MPV 10.9 ESR 9 Sodium 141 Potassium 4.0 Chloride 107 Carbon Dioxide 26.0 Anion Gap 8 BUN 11 Creatinine 1.04 Estim Creat Clear Calc 111.97 Est GFR (MDRD) Af Amer 102 Est GFR (MDRD) Non-Af 85 BUN/Creatinine Ratio 10.6 Glucose 93 Calcium 7.8 L Total Bilirubin 0.40 AST 11 L ALT 27 Alkaline Phosphatase 77 C-React Prot Ext Range 105.00 H Total Protein 5.6 L Albumin 2.7 L Globulin 2.9 Albumin/Globulin Ratio 0.9 Prealbumin 16.1 L Diagnostic Data Upper Extremity CT 06/27/17 14:26 IMPRESSION: Flexion deformity of the proximal interphalangeal joints of the second and third digits with soft tissue swelling at the metacarpophalangeal joints involving the second and third digits. Electronically Signed: Hadley Magallon MD at 15:35 EDT Tel [phone], Service support , Medical Necessity - Tobacco Use Smoking Status: Current every day smoker Assessment/Plan 1. Abscess ulnar aspect right index finger near PIP joint s/p I&D in ED. 2. MRSA. 3. Cellulitis dorsum right hand with extension over MP joints right index finger and right long finger. 4. 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 5. Psoriatic arthritis and on immunotherapy (Ixekizumab). CT reviewed. There is swelling and no defined abscess noted. Patient's pain is improving. Seems to be demarcating over the MP joints right index finger and right long finger. Swelling is slowly resolving. PICC line placed yesterday. On Vancomycin for MRSA. Anticipate at least 2 weeks of IV Vancomycin. Will reassess in my office after discharge to determine if we can switch to po antibiotics or if we need to continue the IV Vancomycin. Since he is on Ixekizumab, I may extend the Vancomycin. No need for surgery today. Will reassess every morning to determine if operative I&D is necessary or if we can continue the IV antibiotics. Prealbumin is little low at 16.1. Encourage nutritional supplementation with protein to help the healing process. Even though he has flexion contractures involving the PIP joints of right index and right long fingers, he is encouraged to do range of motion exercises to minimize stiffness in his other fingers. He may need OT after discharge.
--- NOTE | 2017-06-28 10:02 | PCM.PN.HOSP ---
Subjective: Patient is a 36-year-old male with a past medical history of psoriasis was admitted with a complaint of right hand swelling, pain and redness. He has started 3 days prior to presentation with minimal swelling and erythema around the knuckle of the right index finger. He had noticed a rash on his finger and thought it was eczema and so had been scratching. The next day he noticed that the swelling on the knuckles of the index finger had increased with associated redness. It also involved his right middle finger as well. On 06/25/2017 he had incision and drainage of the right index finger due to an abscess and was discharged on Bactrim. However symptoms worsen with antibiotic becoming swollen and he was admitted and is being managed for cellulitis of the right hand. General surgery is on board. He is currently on IV vancomycin. Seen and examined this morning. He was being seen by Dr. Alva at time of my review. He said swelling had gone down significantly. He denied any fever or chills, any cough, any chest pain, any abdominal pain, any diarrhea vomiting. Review of systems otherwise negative. Right index finger still draining pus. Vitals/I&O's: Vital Signs Temp Pulse Resp BP Pulse Ox 98.2 F 77 18 117/70 97 06/28/17 08:29 06/28/17 08:29 06/28/17 08:29 06/28/17 08:29 06/28/17 08:29 Oxygen Delivery Method Room Air Weight: 224 lb 3.362 oz Body Mass Index (BMI) 28.8 Intake and Output for Last 24 Hours 06/26/17 06/27/17 06/28/17 23:59 23:59 23:59 Intake Total 4936 / 4936 760 / 760 Output Total 1750 / 1750 Balance 3186 / 3186 760 / 760 General: Alert, Oriented x3, Cooperative, No apparent distress HEENT: Atraumatic, PERRLA, EOMI, Normocephalic Neck: Supple, No JVD, Negative Carotid Bruits Lungs: Clear to auscultation, Normal air movement, No rhonchi, No wheeze Cardiovascular: Regular rate, Regular Rhythm, Normal S1, Normal S2, No murmurs Abdomen: Bowel Sounds Present, Soft, Non Tender, Non-Distended, No Hepato-splenomegaly Extremities: - - Entire right fundus swollen up to rest with attendant erythema and redness. Has no tenderness on examination. Right index finger is draining pus from lateral side. Area of swelling demarcated, and swelling has not extended beyond demarcation. Right radial Pulse is palpable. Skin: - - Has patches of alopecia on the scalp. Musculoskeletal: - - Patient referred to extremities examination. Lymphatic: No Cervical, Supraclavicular, or Inguinal Adenopathy Neurological: Cranial nerves II-XII grossly intact, Neuro grossly intact Psych/Mental Status: Normal Affect, Appropriate, Alert and oriented to time, place, person, mood and affect Laboratory Results 06/28/17 05:30: WBC 10.4, RBC 4.27 L, Hgb 14.0, Hct 40.6, MCV 95.1 H, MCH 32.8 H, MCHC 34.5, RDW 12.1, RDW Differential 41.3, Plt Count 130 L, MPV 10.9, ESR 9 06/28/17 05:30: Sodium 141, Potassium 4.0, Chloride 107, Carbon Dioxide 26.0, Anion Gap 8, BUN 11, Creatinine 1.04, Estim Creat Clear Calc 111.97, Est GFR (MDRD) Af Amer 102, Est GFR (MDRD) Non-Af 85, BUN/Creatinine Ratio 10.6, Glucose 93, Calcium 7.8 L, Total Bilirubin 0.40, AST 11 L, ALT 27, Alkaline Phosphatase 77, C-React Prot Ext Range 105.00 H, Total Protein 5.6 L, Albumin 2.7 L, Globulin 2.9, Albumin/Globulin Ratio 0.9, Prealbumin 16.1 L Current Medications Acetaminophen (Tylenol) 650 mg PO Q6H PRN PRN PRN Reason: Fever, headache, pain Last Admin: 06/28/17 05:04 Dose: 650 mg Sodium Chloride () 1,000 mls @ 100 mls/hr IV .Q10H [facility] Last Admin: 06/28/17 04:51 Dose: 100 mls/hr Vancomycin HCl 1,250 mg/ (Sodium Chloride) 275 mls @ 183.333 mls/hr IV Q12H NATAN Last Admin: 06/28/17 04:51 Dose: 183.333 mls/hr Ketorolac Tromethamine (Toradol) 15 mg IV Q6 [facility] Stop: 07/02/17 09:50 Last Admin: 06/28/17 05:04 Dose: 15 mg Morphine Sulfate () 2 mg IV Q3H PRN PRN PRN Reason: SEVERE PAIN (6-10/10) Last Admin: 06/27/17 21:33 Dose: 2 mg Ondansetron HCl (Zofran) 4 mg IV Q6H PRN PRN PRN Reason: NAUSEA/VOMITING Oxycodone HCl (Oxyir) 5 mg PO Q6H PRN PRN PRN Reason: SEVERE PAIN (6-10/10) Last Admin: 06/28/17 03:31 Dose: 5 mg Sodium Chloride () 5 - 30 ml IV UD PRN PRN Reason: SALINE FLUSH Last Admin: 06/28/17 05:37 Dose: 30 ml Medical Necessity - Tobacco Use Smoking Status: Current every day smoker Assessment/Plan 36-year-old male presenting with complaint of worsening right hand pain redness and swelling after he had incision and drainage for right index finger cellulitis on 06/25/2017. Has been managed for cellulitis of the right hand. 1. Cellulitis and abscess of the right hand: Status post I&D on 06/25/2017. Was discharged on p.o. Bactrim but failed outpatient therapy. Vitals are remained stable and is afebrile. CBC: mild leucocytosis has resolved; wbc is down to 10.4 from 12.9. CRP was 105 on admission MRSA PCR was positive Xray on 06/25/17 revelaed soft tissue swelling only View Dr. Alva this morning. Continue IV vancomycin. He will be assessed by Dr. Alva and decision will be made about surgery patient change in physical examination. continue IV fluids. Continue IV vancomycin. Will need ~ 2 weeks of IV antibiotics, per Dr Alva on PO tylenol for pain. Has PICC line in place encourage range of motion exercise to minimise stiffness in fingers 2. Mild ZOHAIB Cr was 1.36 on admission. On IVF. Cr down to 1.04 today. Will continue gentle hydration with IVF. 3. psoriasis; on Ixekizumab injections. 4. DVT prophylaxis: encourage ambulation This note was generated with [employer] software. It may contain incorrect words, spelling, and punctuation that were not noted in checking the note before signing. Code Visit Inpatient E&M: 19424 Subs Hosp L2
--- NOTE | 2017-06-28 10:13 | PN_ITS ---
Subjective: Patient is a 36-year-old male with a past medical history of psoriasis was admitted with a complaint of right hand swelling, pain and redness. He has started 3 days prior to presentation with minimal swelling and erythema around the knuckle of the right index finger. He had noticed a rash on his finger and thought it was eczema and so had been scratching. The next day he noticed that the swelling on the knuckles of the index finger had increased with associated redness. It also involved his right middle finger as well. On 06/25/2017 he had incision and drainage of the right index finger due to an abscess and was discharged on Bactrim. However symptoms worsen with antibiotic becoming swollen and he was admitted and is being managed for cellulitis of the right hand. General surgery is on board. He is currently on IV vancomycin. Seen and examined this morning. He was being seen by Dr. Alva at time of my review. He said swelling had gone down significantly. He denied any fever or chills, any cough, any chest pain, any abdominal pain, any diarrhea vomiting. Review of systems otherwise negative. Right index finger still draining pus. Vitals/I&O's: Vital Signs Temp Pulse Resp BP Pulse Ox 98.2 F 77 18 117/70 97 06/28/17 08:29 06/28/17 08:29 06/28/17 08:29 06/28/17 08:29 06/28/17 08:29 Oxygen Delivery Method Room Air Weight: 224 lb 3.362 oz Body Mass Index (BMI) 28.8 Intake and Output for Last 24 Hours 06/26/17 06/27/17 06/28/17 23:59 23:59 23:59 Intake Total 4936 / 4936 760 / 760 Output Total 1750 / 1750 Balance 3186 / 3186 760 / 760 General: Alert, Oriented x3, Cooperative, No apparent distress HEENT: Atraumatic, PERRLA, EOMI, Normocephalic Neck: Supple, No JVD, Negative Carotid Bruits Lungs: Clear to auscultation, Normal air movement, No rhonchi, No wheeze Cardiovascular: Regular rate, Regular Rhythm, Normal S1, Normal S2, No murmurs Abdomen: Bowel Sounds Present, Soft, Non Tender, Non-Distended, No Hepato- splenomegaly Extremities: - - Entire right fundus swollen up to rest with attendant erythema and redness. Has no tenderness on examination. Right index finger is draining pus from lateral side. Area of swelling demarcated, and swelling has not extended beyond demarcation. Right radial Pulse is palpable. Skin: - - Has patches of alopecia on the scalp. Musculoskeletal: - - Patient referred to extremities examination. Lymphatic: No Cervical, Supraclavicular, or Inguinal Adenopathy Neurological: Cranial nerves II-XII grossly intact, Neuro grossly intact Psych/Mental Status: Normal Affect, Appropriate, Alert and oriented to time, place, person, mood and affect Laboratory Results 06/28/17 05:30: WBC 10.4, RBC 4.27 L, Hgb 14.0, Hct 40.6, MCV 95.1 H, MCH 32.8 H , MCHC 34.5, RDW 12.1, RDW Differential 41.3, Plt Count 130 L, MPV 10.9, ESR 9 06/28/17 05:30: Sodium 141, Potassium 4.0, Chloride 107, Carbon Dioxide 26.0, Anion Gap 8, BUN 11, Creatinine 1.04, Estim Creat Clear Calc 111.97, Est GFR ( MDRD) Af Amer 102, Est GFR (MDRD) Non-Af 85, BUN/Creatinine Ratio 10.6, Glucose 93, Calcium 7.8 L, Total Bilirubin 0.40, AST 11 L, ALT 27, Alkaline Phosphatase 77, C-React Prot Ext Range 105.00 H, Total Protein 5.6 L, Albumin 2.7 L, Globulin 2.9, Albumin/Globulin Ratio 0.9, Prealbumin 16.1 L Current Medications Acetaminophen (Tylenol) 650 mg PO Q6H PRN PRN PRN Reason: Fever, headache, pain Last Admin: 06/28/17 05:04 Dose: 650 mg Sodium Chloride () 1,000 mls @ 100 mls/hr IV .Q10H [facility] Last Admin: 06/28/17 04:51 Dose: 100 mls/hr Vancomycin HCl 1,250 mg/ (Sodium Chloride) 275 mls @ 183.333 mls/hr IV Q12H [facility] Last Admin: 06/28/17 04:51 Dose: 183.333 mls/hr Ketorolac Tromethamine (Toradol) 15 mg IV Q6 [facility] Stop: 07/02/17 09:50 Last Admin: 06/28/17 05:04 Dose: 15 mg Morphine Sulfate () 2 mg IV Q3H PRN PRN PRN Reason: SEVERE PAIN (6-10/10) Last Admin: 06/27/17 21:33 Dose: 2 mg Ondansetron HCl (Zofran) 4 mg IV Q6H PRN PRN PRN Reason: NAUSEA/VOMITING Oxycodone HCl (Oxyir) 5 mg PO Q6H PRN PRN PRN Reason: SEVERE PAIN (6-10/10) Last Admin: 06/28/17 03:31 Dose: 5 mg Sodium Chloride () 5 - 30 ml IV UD PRN PRN Reason: SALINE FLUSH Last Admin: 06/28/17 05:37 Dose: 30 ml Medical Necessity - Tobacco Use Smoking Status: Current every day smoker Assessment/Plan 36-year-old male presenting with complaint of worsening right hand pain redness and swelling after he had incision and drainage for right index finger cellulitis on 06/25/2017. Has been managed for cellulitis of the right hand. 1. Cellulitis and abscess of the right hand: * Status post I&D on 06/25/2017. Was discharged on p.o. Bactrim but failed outpatient therapy. * Vitals are remained stable and is afebrile. * CBC: mild leucocytosis has resolved; wbc is down to 10.4 from 12.9. CRP was 105 on admission * MRSA PCR was positive * Xray on 06/25/17 revelaed soft tissue swelling only * View Dr. Alva this morning. Continue IV vancomycin. He will be assessed by Dr. Alva and decision will be made about surgery patient change in physical examination. * continue IV fluids. * Continue IV vancomycin. Will need ~ 2 weeks of IV antibiotics, per Dr Alva * on PO tylenol for pain. * Has PICC line in place * encourage range of motion exercise to minimise stiffness in fingers * 2. Mild ZOHAIB * Cr was 1.36 on admission. On IVF. Cr down to 1.04 today. Will continue gentle hydration with IVF. * 3. psoriasis; on Ixekizumab injections. 4. DVT prophylaxis: encourage ambulation This note was generated with [employer] dictation software. It may contain incorrect words, spelling, and punctuation that were not noted in checking the note before signing. Code Visit Inpatient E&M: 81391 Subs Hosp L2
[2017-06-28 14:22] VITALS: BP 121/72; PULSE 76; RESP 18; TEMP 35.9; O2SAT 100
[2017-06-28 17:31] LABS: Vancomycin, Trough Level 11.1 ug/mL (5.0-15.0)
--- NOTE | 2017-06-28 19:39 | PCM.RX.CS ---
Consult Pharmacy has been consulted to manage selected antiobiotic: Vancomycin Type of Consult: Follow-up Suspected Infection: Skin/Soft tissue Prior Doses of Antibiotics Received/Current Regimen: Medications Vancomycin HCl 1,500 mg/ (Sodium Chloride) 530 mls @ 250 mls/hr IV Q12H [facility] Discontinued Medications Vancomycin HCl 1,250 mg/ (Sodium Chloride) 275 mls @ 183.333 mls/hr IV Q12H [facility] Last Admin: 06/28/17 17:16 Dose: 183.333 mls/hr Labs: Sodium 141 mmol/L (136-145) 06/28/17 05:30 Potassium 4.0 mmol/L (3.5-5.1) 06/28/17 05:30 Chloride 107 mmol/L (98-107) 06/28/17 05:30 Carbon Dioxide 26.0 mmol/L (21.0-32.0) 06/28/17 05:30 Anion Gap 8 (5-15) 06/28/17 05:30 BUN 11 mg/dL (7-18) 06/28/17 05:30 Creatinine 1.04 mg/dL (0.70-1.30) 06/28/17 05:30 Est GFR (MDRD) Af Amer 102 mL/min (>60) 06/28/17 05:30 Est GFR (MDRD) Non-Af 85 mL/min (>60) 06/28/17 05:30 BUN/Creatinine Ratio 10.6 RATIO (10-20) 06/28/17 05:30 Glucose 93 mg/dL (74-106) 06/28/17 05:30 Vancomycin Trough 11.1 ug/mL (5.0-15.0) 06/28/17 16:15 Weight used for dosin.7 kg Estimated Creatinine Clearance: 139 Goal Trough: 10-15 mcg/mL Pharmacy Plan for Drug Dosing: Pharmacy Service will continue to monitor and adjust dosing as required. Follow-Up Labs: Trough Vancomycin Labs to be done on [date and time ordered]: 06/30/17 @1630
[2017-06-28 20:30] VITALS: BP 118/69; PULSE 74; RESP 18; TEMP 36.6; O2SAT 99
[2017-06-29] MEDS: 0.9% NaCl Peripheral Flush Adult/Peds IV ×3 (00:14→11:45)
[2017-06-29] MEDS: Ketorolac 15 MG/ML Vial IV ×4 (00:14→17:22)
[2017-06-29 02:30] VITALS: BP 109/62; PULSE 75; RESP 16; TEMP 36.9; O2SAT 97
[2017-06-29] MEDS: 0.9% Normal Saline 1,000 ML 100 ML IV (05:20)
[2017-06-29 05:42] LABS: Absolute Lymphocyte Count 2.01 X10^3/ul (0.83-4.51); Absolute Neutrophil Count 6.9 X10^3/uL (2.0-7.7); Basophil# 0.03 X10^3/uL; Basophil% 0.3 % (0-1); Eosinophils% 6.7 % (0-5); Hematocrit 40.8 % (40-54); Lymphocyte # 2.01 X10^3/ul (4.0); Lymphocyte % 19.2 % (19-41); Mean Corp Hgb Conc 34.3 g/gl (32-36); Mean Corpuscular Hgb 32.7 pg (27.0-32.0); Mean Corpuscular Volume 95.3 fL (80-94); Mean Platelet Vol. 10.9 fl (6.2-12.0); Monocyte# 0.75 X10^3/uL; Monocyte% 7.2 % (0-10); Neutrophil # 6.94 X10^3/uL (2.7-7.7); Neutrophil % 66.2 % (47-70); Platelet Count 138 K/mm3 (150-450); RBC Distribution Width SD 41.1 fl (35.1-43.9); Red Blood Count 4.28 M/mm3 (4.6-6.2); White Blood Count 10.5 K/mm3 (4.4-11.0)
[2017-06-29 05:48] LABS: POSITIVE COUNT NO; POSITIVE DIFFERENTIAL NO; POSITIVE MORPHOLOGY NO
[2017-06-29 06:00] LABS: Anion Gap 8 (5-15); BUN 13 mg/dL (7-18); BUN/Creat Ratio 14.4 RATIO (10-20); Chloride 109 mmol/L (98-107); EST Glomerular Filtration Rate 100 mL/min (>60); Est Glom Filt Rate - Afr Amer 121 mL/min (>60); Estimated Creatinine Clearance 129.39 ml/min; Glucose 101 mg/dL (74-106); Potassium 4.4 mmol/L (3.5-5.1); Sodium Level 142 mmol/L (136-145)
[2017-06-29 08:04] VITALS: BP 128/76; PULSE 73; RESP 18; TEMP 36.9; O2SAT 100
--- NOTE | 2017-06-29 10:55 | PCM.PN.HOSP ---
Subjective: Patient is a 36-year-old male with a past medical history of psoriasis was admitted with a complaint of right hand swelling, pain and redness. He has started 3 days prior to presentation with minimal swelling and erythema around the knuckle of the right index finger. On 06/25/2017 he had incision and drainage of the right index finger due to an abscess and was discharged on Bactrim. However symptoms worsened with antibiotic becoming swollen and he was admitted and is being managed for cellulitis of the right hand. General surgery is on board. He is currently on IV vancomycin. patient seen and examined today. He has no complaints. He is quite excited because swelling is almost come down significantly. He denies any fever, chills, shortness of breath, chest pain, abdominal pain, diarrhea vomiting. Review of systems otherwise negative. Vitals/I&O's: Vital Signs Temp Pulse Resp BP Pulse Ox 98.4 F 73 18 128/76 H 100 06/29/17 08:04 06/29/17 08:04 06/29/17 08:04 06/29/17 08:04 06/29/17 08:04 Oxygen Delivery Method Room Air Weight: 224 lb 3.362 oz Body Mass Index (BMI) 28.8 Intake and Output for Last 24 Hours 06/27/17 06/28/17 06/29/17 23:59 23:59 23:59 Intake Total 4936 / 4936 2875 / 2875 1649 / 1649 Output Total 1750 / 1750 Balance 3186 / 3186 2875 / 2875 1649 / 1649 General: Alert, Oriented x3, Cooperative HEENT: Atraumatic, PERRLA, EOMI, Normocephalic Oral: Moist Mucosa Neck: Supple, No JVD, Negative Carotid Bruits Lungs: Clear to auscultation, Normal air movement Cardiovascular: Regular rate, Regular Rhythm, Normal S1, Normal S2, No murmurs Abdomen: Bowel Sounds Present, Soft, Non Tender Extremities: No edema, Capillary Refill Less than 3 Seconds, - - swelling of left hand has reduced significantly; still draining pus from lateral side of left second finger. Skin: Ulcer/ Wound - ulceration over left second finger which is draining pus Musculoskeletal: No Tenderness to Palpation of Joints or Extremities Lymphatic: No Cervical, Supraclavicular, or Inguinal Adenopathy Neurological: Cranial nerves II-XII grossly intact, Neuro grossly intact, Motor Exam 5/5 strength throughout Psych/Mental Status: Normal Affect, Appropriate, Alert and oriented to time, place, person, mood and affect Laboratory Results 06/28/17 16:15: Vancomycin Trough 11.1 06/29/17 05:20: WBC 10.5, RBC 4.28 L, Hgb 14.0, Hct 40.8, MCV 95.3 H, MCH 32.7 H, MCHC 34.3, RDW 12.0, RDW Differential 41.1, Plt Count 138 L, MPV 10.9, Immature Gran % (Auto) 0.400, Neut % (Auto) 66.2, Lymph % (Auto) 19.2, [place] % (Auto) 7.2, Eos % (Auto) 6.7 H, Baso % (Auto) 0.3, Absolute Neuts (auto) 6.9, Absolute Lymphs (auto) 2.01, Total Counted Not Reportable 06/29/17 05:20: Sodium 142, Potassium 4.4, Chloride 109 H, Carbon Dioxide 25.0, Anion Gap 8, BUN 13, Creatinine 0.90, Estim Creat Clear Calc 129.39, Est GFR (MDRD) Af Amer 121, Est GFR (MDRD) Non-Af 100, BUN/Creatinine Ratio 14.4, Glucose 101, Calcium 8.0 L Current Medications Acetaminophen (Tylenol) 650 mg PO Q6H PRN PRN PRN Reason: Fever, headache, pain Last Admin: 06/28/17 16:19 Dose: 650 mg Vancomycin HCl 1,500 mg/ (Sodium Chloride) 530 mls @ 250 mls/hr IV Q12H [facility] Last Admin: 06/29/17 05:20 Dose: 250 mls/hr Ketorolac Tromethamine (Toradol) 15 mg IV Q6 [facility] Stop: 07/02/17 09:50 Last Admin: 06/29/17 05:20 Dose: 15 mg Morphine Sulfate () 2 mg IV Q3H PRN PRN PRN Reason: SEVERE PAIN (6-10/10) Last Admin: 06/27/17 21:33 Dose: 2 mg Ondansetron HCl (Zofran) 4 mg IV Q6H PRN PRN PRN Reason: NAUSEA/VOMITING Oxycodone HCl (Oxyir) 5 mg PO Q6H PRN PRN PRN Reason: SEVERE PAIN (6-10/10) Last Admin: 06/28/17 03:31 Dose: 5 mg Sodium Chloride () 5 - 30 ml IV UD PRN PRN Reason: SALINE FLUSH Last Admin: 06/29/17 05:20 Dose: 30 ml Medical Necessity - Tobacco Use Smoking Status: Current every day smoker Assessment/Plan 36-year-old male presenting with complaint of worsening right hand pain redness and swelling after he had incision and drainage for right index finger cellulitis on 06/25/2017. Has been managed for cellulitis of the right hand. 1. Cellulitis and abscess of the right hand: Status post I&D on 06/25/2017. Was discharged on p.o. Bactrim but failed outpatient therapy. Vitals are remained stable and is afebrile. swelling has reduced significantly. Has good oral intake On IV vancomycin. Will continue; vanc trough (06/28/17)-11.1 on PO tyelenol for pain will dc IVF. Plastic surgery-Dr Alva on board. WIll see and decide about surgery Has PICC line in place encourage range of motion exercise to minimise stiffness in fingers 2. psoriasis; on Ixekizumab injections monthly. Next dose is 07/14/17. 3. DVT prophylaxis: encourage ambulation This note was generated with [employer] dictation software. It may contain incorrect words, spelling, and punctuation that were not noted in checking the note before signing. Code Visit Inpatient E&M: 16122 Subs Hosp L2
--- NOTE | 2017-06-29 11:00 | PN_ITS ---
Subjective: Patient is a 36-year-old male with a past medical history of psoriasis was admitted with a complaint of right hand swelling, pain and redness. He has started 3 days prior to presentation with minimal swelling and erythema around the knuckle of the right index finger. On 06/25/2017 he had incision and drainage of the right index finger due to an abscess and was discharged on Bactrim. However symptoms worsened with antibiotic becoming swollen and he was admitted and is being managed for cellulitis of the right hand. General surgery is on board. He is currently on IV vancomycin. patient seen and examined today. He has no complaints. He is quite excited because swelling is almost come down significantly. He denies any fever, chills , shortness of breath, chest pain, abdominal pain, diarrhea vomiting. Review of systems otherwise negative. Vitals/I&O's: Vital Signs Temp Pulse Resp BP Pulse Ox 98.4 F 73 18 128/76 H 100 06/29/17 08:04 06/29/17 08:04 06/29/17 08:04 06/29/17 08:04 06/29/17 08:04 Oxygen Delivery Method Room Air Weight: 224 lb 3.362 oz Body Mass Index (BMI) 28.8 Intake and Output for Last 24 Hours 06/27/17 06/28/17 06/29/17 23:59 23:59 23:59 Intake Total 4936 / 4936 2875 / 2875 1649 / 1649 Output Total 1750 / 1750 Balance 3186 / 3186 2875 / 2875 1649 / 1649 General: Alert, Oriented x3, Cooperative HEENT: Atraumatic, PERRLA, EOMI, Normocephalic Oral: Moist Mucosa Neck: Supple, No JVD, Negative Carotid Bruits Lungs: Clear to auscultation, Normal air movement Cardiovascular: Regular rate, Regular Rhythm, Normal S1, Normal S2, No murmurs Abdomen: Bowel Sounds Present, Soft, Non Tender Extremities: No edema, Capillary Refill Less than 3 Seconds, - - swelling of left hand has reduced significantly; still draining pus from lateral side of left second finger. Skin: Ulcer/ Wound - ulceration over left second finger which is draining pus Musculoskeletal: No Tenderness to Palpation of Joints or Extremities Lymphatic: No Cervical, Supraclavicular, or Inguinal Adenopathy Neurological: Cranial nerves II-XII grossly intact, Neuro grossly intact, Motor Exam 5/5 strength throughout Psych/Mental Status: Normal Affect, Appropriate, Alert and oriented to time, place, person, mood and affect Laboratory Results 06/28/17 16:15: Vancomycin Trough 11.1 06/29/17 05:20: WBC 10.5, RBC 4.28 L, Hgb 14.0, Hct 40.8, MCV 95.3 H, MCH 32.7 H , MCHC 34.3, RDW 12.0, RDW Differential 41.1, Plt Count 138 L, MPV 10.9, Immature Gran % (Auto) 0.400, Neut % (Auto) 66.2, Lymph % (Auto) 19.2, [place] % ( Auto) 7.2, Eos % (Auto) 6.7 H, Baso % (Auto) 0.3, Absolute Neuts (auto) 6.9, Absolute Lymphs (auto) 2.01, Total Counted Not Reportable 06/29/17 05:20: Sodium 142, Potassium 4.4, Chloride 109 H, Carbon Dioxide 25.0, Anion Gap 8, BUN 13, Creatinine 0.90, Estim Creat Clear Calc 129.39, Est GFR ( MDRD) Af Amer 121, Est GFR (MDRD) Non-Af 100, BUN/Creatinine Ratio 14.4, Glucose 101, Calcium 8.0 L Current Medications Acetaminophen (Tylenol) 650 mg PO Q6H PRN PRN PRN Reason: Fever, headache, pain Last Admin: 06/28/17 16:19 Dose: 650 mg Vancomycin HCl 1,500 mg/ (Sodium Chloride) 530 mls @ 250 mls/hr IV Q12H [facility] Last Admin: 06/29/17 05:20 Dose: 250 mls/hr Ketorolac Tromethamine (Toradol) 15 mg IV Q6 [facility] Stop: 07/02/17 09:50 Last Admin: 06/29/17 05:20 Dose: 15 mg Morphine Sulfate () 2 mg IV Q3H PRN PRN PRN Reason: SEVERE PAIN (6-10/10) Last Admin: 06/27/17 21:33 Dose: 2 mg Ondansetron HCl (Zofran) 4 mg IV Q6H PRN PRN PRN Reason: NAUSEA/VOMITING Oxycodone HCl (Oxyir) 5 mg PO Q6H PRN PRN PRN Reason: SEVERE PAIN (6-10/10) Last Admin: 06/28/17 03:31 Dose: 5 mg Sodium Chloride () 5 - 30 ml IV UD PRN PRN Reason: SALINE FLUSH Last Admin: 06/29/17 05:20 Dose: 30 ml Medical Necessity - Tobacco Use Smoking Status: Current every day smoker Assessment/Plan 36-year-old male presenting with complaint of worsening right hand pain redness and swelling after he had incision and drainage for right index finger cellulitis on 06/25/2017. Has been managed for cellulitis of the right hand. 1. Cellulitis and abscess of the right hand: * Status post I&D on 06/25/2017. Was discharged on p.o. Bactrim but failed outpatient therapy. * Vitals are remained stable and is afebrile. * swelling has reduced significantly. Has good oral intake * On IV vancomycin. Will continue; vanc trough (06/28/17)-11.1 * on PO tyelenol for pain * will dc IVF. * Plastic surgery-Dr Alva on board. WIll see and decide about surgery * Has PICC line in place * encourage range of motion exercise to minimise stiffness in fingers * * 2. psoriasis; on Ixekizumab injections monthly. Next dose is 07/14/17. 3. DVT prophylaxis: encourage ambulation This note was generated with [employer] dictation software. It may contain incorrect words, spelling, and punctuation that were not noted in checking the note before signing. Code Visit Inpatient E&M: 59624 Subs Hosp L2
--- NOTE | 2017-06-29 13:17 | PN.SURG_ITS ---
Subjective: Patient resting comfortably. He states he is able to move his fingers right hand with minimal discomfort. - Physical Exam General: Alert, Oriented x3 HEENT: PERRLA, EOMI Neck: Supple Lungs: Clear to auscultation Cardiovascular: Regular rate, Regular Rhythm Abdomen: Soft, Non-Distended Extremities: No clubbing, No cyanosis, Edema - mild edema dorsum right hand that is resolving. Some residual edema over MP joint long finger. Skin: Ulcer/ Wound - small wound ulnar aspect right index finger near PIP joint from I&D in ED. Intermittent drainage noted., - - The most swelling is over the dorsal aspect MP joint right long finger. No fluctuance noted. Minimal tenderness noted. The redness over the MP joint index finger has resolved. Lymphatic: - - no axillary adenopathy. Neurological: Cranial nerves II-XII grossly intact Psych/Mental Status: Normal Affect, Appropriate Vital Signs Temp Pulse Resp BP Pulse Ox 98.4 F 73 18 128/76 H 100 06/29/17 08:04 06/29/17 08:04 06/29/17 08:04 06/29/17 08:04 06/29/17 08:04 Oxygen Delivery Method Room Air Weight: 224 lb 3.362 oz Body Mass Index (BMI) 28.8 Intake and Output for Last 24 Hours 06/27/17 06/28/17 06/29/17 23:59 23:59 23:59 Intake Total 4936 / 4936 2875 / 2875 2985 / 2985 Output Total 1750 / 1750 Balance 3186 / 3186 2875 / 2875 2985 / 2985 Laboratory Tests Past 24 Hrs 06/28/17 06/29/17 06/29/17 16:15 05:20 05:20 WBC 10.5 RBC 4.28 L Hgb 14.0 Hct 40.8 MCV 95.3 H MCH 32.7 H MCHC 34.3 RDW 12.0 RDW Differential 41.1 Plt Count 138 L MPV 10.9 Immature Gran % (Auto) 0.400 Neut % (Auto) 66.2 Lymph % (Auto) 19.2 [place] % (Auto) 7.2 Eos % (Auto) 6.7 H Baso % (Auto) 0.3 Absolute Neuts (auto) 6.9 Absolute Lymphs (auto) 2.01 Total Counted Not Reportable Sodium 142 Potassium 4.4 Chloride 109 H Carbon Dioxide 25.0 Anion Gap 8 BUN 13 Creatinine 0.90 Estim Creat Clear Calc 129.39 Est GFR (MDRD) Af Amer 121 Est GFR (MDRD) Non-Af 100 BUN/Creatinine Ratio 14.4 Glucose 101 Calcium 8.0 L Vancomycin Trough 11.1 Medical Necessity - Tobacco Use Smoking Status: Current every day smoker Assessment/Plan 1. Abscess ulnar aspect right index finger near PIP joint s/p I&D in ED. 2. MRSA. 3. Cellulitis dorsum right hand with extension over MP joints right index finger and right long finger. 4. 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 5. Psoriatic arthritis and on immunotherapy (Ixekizumab). Patient is on Vancomycin for the draining wound after I&D in the ED. The MRSA screen is positive. The PICC line is in place for IV antibiotics after discharge. Patient's pain is improving. Seems to be demarcating over the MP joint right long finger. The swelling over the MP joint right index finger appears to have resolved. Anticipate at least 2 weeks of IV Vancomycin. Will reassess in my office after discharge to determine if we can switch to po antibiotics or if we need to continue the IV Vancomycin. Since he is on Ixekizumab, I may extend the Vancomycin. No need for surgery today. Will reassess every morning to determine if operative I&D is necessary or if we can continue the IV antibiotics. Anticipate increased metabolic demands from the infection. Prealbumin was mildly low at 16.1. Encourage nutritional supplementation with protein to help the healing process. Even though he has flexion contractures involving the PIP joints of right index and right long fingers, he is encouraged to do range of motion exercises to minimize stiffness in his other fingers. He may need OT after discharge. Ideally I would like to wait a few days to see how well the infection demarcates to make any surgical intervention a little less involved. Since he is on Ixekizumab, wound healing will be delayed and problematic. Any surgical wounds that are created will need to be closed as soon as the infection is under control. The initial wounds would be treated with daily Silver dressing changes. So I would like to minimize my operative intervention to minimize healing problems. The wound on the index finger created by the ED with the I&D will probably not heal without further operative intervention. So that will be addressed at the same time as any other I&D that may be necessary over the next few days. At this time, there seems to be some demarcation around the MP joint of the long finger as the MP joint index finger has improved. Code Visit Charges CPT - 63689 ICD-10 - L02.511, L03.113, A49.02, M24.541, L40.50
[2017-06-29 14:00] VITALS: BP 116/78; PULSE 67; RESP 18; TEMP 36.8; O2SAT 99
[2017-06-29 20:00] VITALS: BP 111/74; PULSE 65; RESP 18; TEMP 37.1; O2SAT 99
[2017-06-30] MEDS: Ketorolac 15 MG/ML Vial IV ×2 (01:01→05:38)
[2017-06-30] MEDS: 0.9% NaCl Peripheral Flush Adult/Peds IV ×2 (01:01→05:38)
[2017-06-30 02:00] VITALS: BP 110/65; PULSE 74; RESP 18; TEMP 36.7; O2SAT 97
[2017-06-30 06:45] LABS: Anion Gap 8 (5-15); BUN 15 mg/dL (7-18); BUN/Creat Ratio 17.1 RATIO (10-20); Chloride 112 mmol/L (98-107); Creatinine, Serum 0.88 mg/dL (0.70-1.30); EST Glomerular Filtration Rate 103 mL/min (>60); Est Glom Filt Rate - Afr Amer 125 mL/min (>60); Estimated Creatinine Clearance 132.33 ml/min; Glucose 97 mg/dL (74-106); Potassium 4.3 mmol/L (3.5-5.1); Sodium Level 144 mmol/L (136-145)
[2017-06-30 07:32] LABS: Absolute Lymphocyte Count 1.96 X10^3/ul (0.83-4.51); Absolute Neutrophil Count 5.6 X10^3/uL (2.0-7.7); Basophil# 0.02 X10^3/uL; Basophil% 0.2 % (0-1); Eosinophil# 0.65 X10^3/uL; Eosinophils% 7.4 % (0-5); Hematocrit 41.4 % (40-54); Hemoglobin 13.8 g/dl (13.0-16.5); Lymphocyte # 1.96 X10^3/ul (4.0); Lymphocyte % 22.4 % (19-41); Mean Corp Hgb Conc 33.3 g/gl (32-36); Mean Corpuscular Hgb 31.9 pg (27.0-32.0); Mean Corpuscular Volume 95.6 fL (80-94); Mean Platelet Vol. 11.1 fl (6.2-12.0); Monocyte# 0.48 X10^3/uL; Monocyte% 5.5 % (0-10); Neutrophil # 5.62 X10^3/uL (2.7-7.7); Neutrophil % 64.4 % (47-70); Platelet Count 154 K/mm3 (150-450); RBC Distribution Width CV 12.2 % (11.6-14.6); RBC Distribution Width SD 42.6 fl (35.1-43.9); Red Blood Count 4.33 M/mm3 (4.6-6.2); White Blood Count 8.7 K/mm3 (4.4-11.0)
[2017-06-30 07:33] LABS: POSITIVE COUNT NO; POSITIVE DIFFERENTIAL NO; POSITIVE MORPHOLOGY NO
--- NOTE | 2017-06-30 07:54 | PN_ITS ---
Subjective: Patient is a 36-year-old gentleman with history of psoriasis who presented with cellulitis and abscess involving the right hand. Patient had incision and drainage performed in the emergency department, and Bactrim readmitted with worsening symptoms. 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 SKIN: Described above Vitals/I&O's: Vital Signs Temp Pulse Resp BP Pulse Ox 98.1 F 74 18 110/65 97 06/30/17 02:00 06/30/17 02:00 06/30/17 02:00 06/30/17 02:00 06/30/17 02:00 Oxygen Delivery Method Room Air Weight: 101.7 kg Body Mass Index (BMI) 28.8 Intake and Output for Last 24 Hours 06/28/17 06/29/17 06/30/17 23:59 23:59 23:59 Intake Total 2875 / 2875 3385 / 3385 1269 / 1269 Balance 2875 / 2875 3385 / 3385 1269 / 1269 Laboratory Results 06/30/17 05:35: WBC 8.7, RBC 4.33 L, Hgb 13.8, Hct 41.4, MCV 95.6 H, MCH 31.9, MCHC 33.3, RDW 12.2, RDW Differential 42.6, Plt Count 154, MPV 11.1, Immature Gran % (Auto) 0.100, Neut % (Auto) 64.4, Lymph % (Auto) 22.4, [place] % (Auto) 5.5 , Eos % (Auto) 7.4 H, Baso % (Auto) 0.2, Absolute Neuts (auto) 5.6, Absolute Lymphs (auto) 1.96, Total Counted Not Reportable 06/30/17 05:35: Sodium 144, Potassium 4.3, Chloride 112 H, Carbon Dioxide 24.0, Anion Gap 8, BUN 15, Creatinine 0.88, Estim Creat Clear Calc 132.33, Est GFR ( MDRD) Af Amer 125, Est GFR (MDRD) Non-Af 103, BUN/Creatinine Ratio 17.1, Glucose 97, Calcium 8.0 L Current Medications Acetaminophen (Tylenol) 650 mg PO Q6H PRN PRN PRN Reason: Fever, headache, pain Last Admin: 06/28/17 16:19 Dose: 650 mg Vancomycin HCl 1,500 mg/ (Sodium Chloride) 530 mls @ 250 mls/hr IV Q12H NATAN Last Admin: 06/30/17 05:38 Dose: 250 mls/hr Ketorolac Tromethamine (Toradol) 15 mg IV Q6 NATAN Stop: 07/02/17 09:50 Last Admin: 06/30/17 05:38 Dose: 15 mg Morphine Sulfate () 2 mg IV Q3H PRN PRN PRN Reason: SEVERE PAIN (6-10/10) Last Admin: 06/27/17 21:33 Dose: 2 mg Ondansetron HCl (Zofran) 4 mg IV Q6H PRN PRN PRN Reason: NAUSEA/VOMITING Oxycodone HCl (Oxyir) 5 mg PO Q6H PRN PRN PRN Reason: SEVERE PAIN (6-10/10) Last Admin: 06/28/17 03:31 Dose: 5 mg Sodium Chloride () 5 - 30 ml IV UD PRN PRN Reason: SALINE FLUSH Last Admin: 06/30/17 05:38 Dose: 30 ml Medical Necessity - Tobacco Use Smoking Status: Current every day smoker Tobacco Use: Cigarettes Assessment/Plan Patient is a 36-year-old gentleman with history of psoriasis who presented with cellulitis and abscess involving the right hand. Patient had incision and drainage performed in the emergency department, and Bactrim readmitted with worsening symptoms. Patient was started on IV vancomycin PICC line placed with consultation placed the plastic surgery 1. MRSA Cellulitis and abscess involving the right hand (right index finger near PIP joint with extension over MP joints right index finger and right long finger) she did feel outpatient treatment with Bactrim after I&D performed in the emergency department on 06/25/2017 readmitted for IV antibiotic treatment. PICC line was placed patient started on vancomycin consultation placed the plastic surgery as well as infectious disease and wound care nurse 2. Psoriatic arthritis and on immunotherapy (Ixekizumab). 3. Tobacco dependence counseled on cessation, offered nicotine patch for tobacco cravings 4. DVT prophylaxis low risk did encourage early ambulation Code Visit Inpatient E&M: 87189 Subs Hosp L2
[2017-06-30 08:00] VITALS: BP 124/79; PULSE 59; RESP 14; TEMP 36.6; O2SAT 99
--- NOTE | 2017-06-30 08:17 | PCM.PN.SRG ---
Subjective: Patient is resting comfortably. He can move his fingers much better today. - Physical Exam General: Alert, Oriented x3 HEENT: PERRLA, EOMI Neck: Supple Lungs: Clear to auscultation Cardiovascular: Regular rate, Regular Rhythm Abdomen: Soft, Non-Distended Extremities: No clubbing, No cyanosis, No edema - mild edema dorsum right hand has resolved. Skin: Ulcer/ Wound - small wound ulnar aspect right index finger near PIP joint from I&D in ED. Minimal drainage seen today. Patient states with warm compresses that there has been intermittent drainage. No fluctuance noted. Area is nontender. Redness over MP joint index finger and long finger has resolved. Lymphatic: - - no axillary adenopathy. Neurological: Cranial nerves II-XII grossly intact Psych/Mental Status: Normal Affect, Appropriate Vital Signs Temp Pulse Resp BP Pulse Ox 97.9 F 59 L 14 124/79 H 99 06/30/17 08:00 06/30/17 08:00 06/30/17 08:00 06/30/17 08:00 06/30/17 08:00 Oxygen Delivery Method Room Air Weight: 224 lb 3.362 oz Body Mass Index (BMI) 28.8 Intake and Output for Last 24 Hours 06/28/17 06/29/17 06/30/17 23:59 23:59 23:59 Intake Total 2875 / 2875 3385 / 3385 1269 / 1269 Balance 2875 / 2875 3385 / 3385 1269 / 1269 Laboratory Tests Past 24 Hrs 06/30/17 06/30/17 05:35 05:35 WBC 8.7 RBC 4.33 L Hgb 13.8 Hct 41.4 MCV 95.6 H MCH 31.9 MCHC 33.3 RDW 12.2 RDW Differential 42.6 Plt Count 154 MPV 11.1 Immature Gran % (Auto) 0.100 Neut % (Auto) 64.4 Lymph % (Auto) 22.4 [place] % (Auto) 5.5 Eos % (Auto) 7.4 H Baso % (Auto) 0.2 Absolute Neuts (auto) 5.6 Absolute Lymphs (auto) 1.96 Total Counted Not Reportable Sodium 144 Potassium 4.3 Chloride 112 H Carbon Dioxide 24.0 Anion Gap 8 BUN 15 Creatinine 0.88 Estim Creat Clear Calc 132.33 Est GFR (MDRD) Af Amer 125 Est GFR (MDRD) Non-Af 103 BUN/Creatinine Ratio 17.1 Glucose 97 Calcium 8.0 L Medical Necessity - Tobacco Use Smoking Status: Current every day smoker Tobacco Use: Cigarettes Assessment/Plan 1. Abscess ulnar aspect right index finger near PIP joint s/p I&D in ED. 2. MRSA. 3. Cellulitis dorsum right hand with extension over MP joints right index finger and right long finger. 4. 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 5. Psoriatic arthritis and on immunotherapy (Ixekizumab). 6. Smoker. Patient is on Vancomycin for the draining wound after I&D in the ED. The MRSA screen is positive. The PICC line is in place for IV antibiotics after discharge. Patient's pain has resolved. The swelling over the MP joints right index finger and right long finger have resolved. Anticipate at least 2 weeks of IV Vancomycin. Will reassess in my office after discharge to determine if we can switch to po antibiotics or if we need to continue the IV Vancomycin. Since he is on Ixekizumab, I may extend the Vancomycin. The MRSA is also sensitive to Doxycycline when it is time to private branch exchange service advisor to po antibiotics. No need for surgery today. OK for discharge from my standpoint. Anticipate increased metabolic demands from the infection. Prealbumin was mildly low at 16.1. Encourage nutritional supplementation with protein to help the healing process. Even though he has flexion contractures involving the PIP joints of right index and right long fingers, he is encouraged to do range of motion exercises to minimize stiffness in his other fingers. He may need OT after discharge. Will see him in my office in a week and will continue to monitor the healing. Recommend holding off on anymore injections with Ixekizemab until the finger wound has healed. If healing becomes problematic when seen in my office after discharge, will schedule operative intervention at that time. Since he is on Ixekizumab, wound healing will be delayed and problematic. Any surgical wounds that are created will need to be closed as soon as the infection is under control. The initial wounds would be treated with daily Silver dressing changes. So I would like to minimize my operative intervention to minimize healing problems. Encouraged the patient to stop smoking as it may have deleterious effects on wound healing. Code Visit Inpatient E&M: 21105 Subs Hosp L1 - ICD-10 - L02.511, L03.113, A49.02, M24.541, L40.50, F17.200
--- NOTE | 2017-06-30 09:30 | CASEMGMT ---
Intro role of CM to patient in room. He prefers to come to [facility] infusion center for outpt therapy. Call to [employer], spoke with Terrell in precert, UM. Per Terrell, no precertification will be needed under the [employer] plan which pt will be continuing under COBRA. Pt has initiated the COBRA. Copy of insurance card (per pt ID #'s will be the same) faxed to [facility] in outpt infusion and pedro [facility]. and updated via phone re: insurance. Reference # for call re: precert is [id number] Insurance ID: [employer] [id number] Script for Infusion Center faxed to [facility] for Dr. Alva to sign. Awaiting returned fax. Arben NOELN RN ACM
--- NOTE | 2017-06-30 11:32 | PCM.DC ---
- Discharge Diagnoses Current Active Problems: Current Active and Chronic Problems Psoriasis (Chronic) Allergies/Adverse Reactions: Allergies No Known Allergies Allergy (Verified 06/26/17 23:36) Medications to take at Discharge Ixekizumab [Taltz Autoinjector (2 Pack)] 80 mg SQ Q30D 06/15/17 Vancomycin 1,500 mg IV Q12H 39 Days #78 vial 06/30/17 The following prescriptions were given: Vancomycin 1,500 mg IV Q12H 39 Days #78 vial Primary Care Physician: Care Physician,No Primary [Primary Care Provider] - Please follow up with your Primary Care Physician in: in 1-2 weeks Please Follow Up With: Daniel Alva MD When: in 1 week Proposed Discharge Date: 06/30/17
--- NOTE | 2017-06-30 11:33 | CASEMGMT ---
Pt updated re: outpt infusion. He would like to discharge and return tonight for 5:30 dose. Informed that tonight and yuli @ 7:30, he can sign in @ Central registration desk in main lobby, then tomorrow night for 7 pm dose he will go through ER registration. Order received from Dr. Alva, taken by RN CM to outpt infusion area. Arben NOELN RN ACM
--- NOTE | 2017-06-30 11:40 | DS.PCM_ITS ---
Discharge Date and Diagnosis - Problem List Patient Problems: Active and Suspected Problems Cellulitis of hand (Acute) Date of Admission: 06/27/17 Date of Discharge: 06/30/17 - Primary Discharge Diagnosis Active and Suspected Problems Cellulitis of hand (Acute) - Secondary Discharge Diagnosis Chronic Problems Psoriasis (Chronic) Hospital Course and Treatment Imaging Results: Clinical Impression(s) from Imaging Studies Upper Extremity CT 06/27/17 14:26 IMPRESSION: Flexion deformity of the proximal interphalangeal joints of the second and third digits with soft tissue swelling at the metacarpophalangeal joints involving the second and third digits. 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 Patient had incision and drainage performed in the emergency department, and Bactrim readmitted with worsening symptoms. Patient was started on IV vancomycin PICC line placed with consultation placed the plastic surgery 1. MRSA Cellulitis and abscess involving the right hand (right index finger near PIP joint with extension over MP joints right index finger and right long finger) she did feel outpatient treatment with Bactrim after I&D performed in the emergency department on 06/25/2017 readmitted for IV antibiotic treatment. PICC line was placed patient started on vancomycin consultation placed the plastic surgery as well as infectious disease and wound care nurse Dr. Alva recommended for patient to be discharged home with 2 weeks IV vancomycin and subsequent follow up with him 2. Psoriatic arthritis and on immunotherapy (Ixekizumab). 3. Tobacco dependence counseled on cessation, offered nicotine patch for tobacco cravings 4. DVT prophylaxis low risk did encourage early ambulation Home Medications: Medications to take at Discharge Ixekizumab [Taltz Autoinjector (2 Pack)] 80 mg SQ Q30D 06/15/17 Vancomycin 1,500 mg IV Q12H 39 Days #78 vial 06/30/17 Following Prescrptions Were Given to Patient: Vancomycin 1,500 mg IV Q12H 39 Days #78 vial Primary Care Physician: Care Physician,No Primary [Primary Care Provider] - Please follow up with your Primary Care Physician in: in 1-2 weeks Please Follow Up With: Daniel Alva MD When: in 1 week Disposition: Home with Home Health Minutes spent on discharge:: 35 Patient Condition:: Stable Medical Necessity - Tobacco Use Smoking Status: Current every day smoker Tobacco Use: Cigarettes Meaningful Use Info Meaningful Use Diagnoses (Choose all that apply): None applicable Code Visit Inpatient E&M: 89139 Disch Hosp
--- NOTE | 2017-06-30 11:48 | CON.PCM_ITS ---
Problem List (1) MRSA (methicillin resistant Staphylococcus aureus) infection Status: Acute Reason for Consult: mrsa infection Consulted by: Dr. Davidson History of Present Illness: The patient is a 36 year old M with h/o psoriasis who presented 06/27 with worsening R hand abscess and cellulitis. Sx started several days prior with progressive pain, redness, swelling of R hand, centered around 2nd MCP. Has diffuse cracking of skin of that hand, follows with derm, recently started on course of steroids. No prior MRSA or abscess. No fevers. Seen in ED 06/25, I&D done, cx sent, started on po bactrim, redness spread at home, came back to ED. Admitted on iv vanc, Dr. Alva following, no plan for surgery at this time. Hand continues to drain pus, and is overall much improved now. Picc in place, d /c home planned with bid doses of vanc at infusion center. Full ROS performed and neg except as noted above. - Medical History Past Medical History (Chronic Problems): Chronic Problems Psoriasis (Chronic) Allergies/Adverse Reactions: Allergies No Known Allergies Allergy (Verified 06/26/17 23:36) Home Medications: Ambulatory Orders Medication Instructions Recorded Ixekizumab [Taltz Autoinjector (2 80 mg SQ Q30D 06/15/17 Pack)] Vancomycin 1,500 mg IV Q12H 39 Days #78 vial 06/30/17 - Social History SMOKING STATUS:: Current every day smoker Vital Signs Temp Pulse Resp BP Pulse Ox 97.9 F 59 L 14 124/79 H 99 06/30/17 08:00 06/30/17 08:00 06/30/17 08:00 06/30/17 08:00 06/30/17 08:00 Oxygen Delivery Method Room Air Weight: 101.7 kg Body Mass Index (BMI) 28.8 Laboratory Tests Past 24 Hrs 06/30/17 06/30/17 05:35 05:35 WBC 8.7 RBC 4.33 L Hgb 13.8 Hct 41.4 MCV 95.6 H MCH 31.9 MCHC 33.3 RDW 12.2 RDW Differential 42.6 Plt Count 154 MPV 11.1 Immature Gran % (Auto) 0.100 Neut % (Auto) 64.4 Lymph % (Auto) 22.4 [place] % (Auto) 5.5 Eos % (Auto) 7.4 H Baso % (Auto) 0.2 Absolute Neuts (auto) 5.6 Absolute Lymphs (auto) 1.96 Total Counted Not Reportable Sodium 144 Potassium 4.3 Chloride 112 H Carbon Dioxide 24.0 Anion Gap 8 BUN 15 Creatinine 0.88 Estim Creat Clear Calc 132.33 Est GFR (MDRD) Af Amer 125 Est GFR (MDRD) Non-Af 103 BUN/Creatinine Ratio 17.1 Glucose 97 Calcium 8.0 L - Other Studies Radiology: [] reviewed Other Studies: [] Route of nutrition/ use of supplements: [] Nutritional Intake: [] IV Site: [] Doss Catheter: [] - Physical Exam General: Alert, Oriented x3, Cooperative, No apparent distress HEENT: Atraumatic, PERRLA, EOMI, Normocephalic Neck: Supple, No Nodes Lungs: Clear to auscultation, Normal air movement Cardiovascular: Regular rate, Regular Rhythm, No murmurs Abdomen: Soft, Non Tender, Non-Distended Extremities: No clubbing Skin: Ulcer/ Wound - R hand with improved redness and swelling IV Site: PICC, without redness Neurological: Cranial nerves II-XII grossly intact - Assessment/Plan Antibiotics: [] Assessment/Plan: [] Active and Suspected Problems Cellulitis of hand (Acute) R hand MRSA abscess and cellulitis - s/p I&D in ED 06/25/17. Much improved now on iv vanc. Picc in place, for home iv vanc per Dr. Alva. Agree with plan, ID follow up as needed, I gave him my card. No role for decolonization at this time, but may need in future if infections recur. Thank you, will follow, d/w disease case manager.
--- NOTE | 2017-06-30 12:06 | NURSING ---
wound photo: right index finger
== END 2017-06-30 13:13 | disposition home health service (06) | DRG 603 ==
LOC: ED 23:55 → MS2 06-27 00:28
PROVIDERS: Student in an Organized Health Care Education/Training Program; Surgery; Admitting Provider Hospitalist; Emergency Provider Emergency Medicine; Visit Provider Internal Medicine
DX: L03.113 Cellulitis of right upper limb (principal); L02.511 Cutaneous abscess of right hand; N17.9 Acute kidney failure, unspecified; E86.0 Dehydration; F17.200 Nicotine dependence, unspecified, uncomplicated; L40.50 Arthropathic psoriasis, unspecified; B95.62 Methicillin resistant Staphylococcus aureus infection as the cause of diseases classified elsewhere
CPT/HCPCS: 36415; 36569; 73201; 80048; 80053; 80202; 84134; 85025; 85027; 85652; 86140; 87640; 99282; J7030; J7040; J7050; Q9967; A4216; J0295

== ENCOUNTER 2017-06-30 17:20 | Outpatient (CLI) | payer BC, SELFPAY ==
[2017-06-30 17:36] VITALS: BP 134/77; PULSE 88; RESP 16; TEMP 36.6; O2SAT 100
[2017-06-30 18:45] LABS: Vancomycin, Trough Level 13.2 ug/mL (5.0-15.0)
[2017-06-30 19:05] LABS: Erythrocyte Sedimentation Rate 11 mm/hr (0-15)
[2017-06-30] MEDS: 0.9% NaCl Peripheral Flush Adult/Peds IV (20:33)
== END 2017-06-30 20:43 | disposition home or self-care (01) ==
LOC: MEDOUTP 17:20 → MS3 17:21
PROVIDERS: Visit Provider Surgery
DX: L03.011 Cellulitis of right finger (principal); B95.7 Other staphylococcus as the cause of diseases classified elsewhere; L02.511 Cutaneous abscess of right hand
CPT/HCPCS: 96365; 96366; 80202; 85652; J7040; A4216

== ENCOUNTER 2017-07-01 07:29 | Outpatient (CLI) | payer BC, SELFPAY ==
[2017-07-01 07:45] VITALS: BP 140/84; PULSE 93; RESP 16; TEMP 36.7; O2SAT 97; BMI 29.5
[2017-07-01] MEDS: 0.9% NaCl IVPB Med Flush (250 mL) 15 ML IV (19:45)
[2017-07-01] MEDS: 0.9% NaCl PICC Flush IV ×2 (19:45→22:35)
[2017-07-01 19:50] VITALS: BP 136/73; PULSE 76; RESP 18; TEMP 36.9; O2SAT 100
== END 2017-07-01 22:35 | disposition home or self-care (01) ==
LOC: MEDOUTP 09:27 → MS3 19:33
PROVIDERS: Visit Provider Surgery
DX: L03.011 Cellulitis of right finger (principal); B95.7 Other staphylococcus as the cause of diseases classified elsewhere; L02.511 Cutaneous abscess of right hand
CPT/HCPCS: 96365 ×2; 96366 ×2; J7040; J7050; A4216

== ENCOUNTER 2017-07-02 07:12 | Outpatient (CLI) | payer BC, SELFPAY ==
[2017-07-02 07:23] VITALS: BP 108/70; PULSE 94; RESP 18; TEMP 36.6; O2SAT 97; BMI 29.5
[2017-07-02 18:52] VITALS: BP 136/69; PULSE 96; RESP 15; TEMP 37.2; O2SAT 98
[2017-07-02 21:32] VITALS: BP 126/81; PULSE 68; RESP 16; TEMP 36.7; O2SAT 97
--- NOTE | 2017-07-02 21:38 | NURSING ---
Vanco infusion completed at 2137. Pt tolerated well without complaints. Right Picc line flushed with 20cc NS and capped with green cap. Pt discharged
== END 2017-07-02 21:45 | disposition home or self-care (01) ==
LOC: MEDOUTP 07:15 → PCU 18:28
PROVIDERS: Visit Provider Surgery
DX: L03.011 Cellulitis of right finger (principal); L02.511 Cutaneous abscess of right hand; B95.7 Other staphylococcus as the cause of diseases classified elsewhere
CPT/HCPCS: J7040; J7050; A4216

== ENCOUNTER 2017-07-03 07:28 | Outpatient (CLI) | payer BC, SELFPAY ==
[2017-07-03 07:30] VITALS: BP 136/79; PULSE 87; RESP 18; TEMP 36.7; O2SAT 95; BMI 29.5
[2017-07-03 18:40] VITALS: BP 134/86; PULSE 99; RESP 16; TEMP 36.9; O2SAT 98
[2017-07-03] MEDS: 0.9% NaCl PICC Flush IV (21:13)
== END 2017-07-03 21:15 | disposition home or self-care (01) ==
LOC: MEDOUTP 18:33 → MS2 18:33
PROVIDERS: Visit Provider Surgery
DX: L03.011 Cellulitis of right finger (principal); B95.7 Other staphylococcus as the cause of diseases classified elsewhere; L02.511 Cutaneous abscess of right hand
CPT/HCPCS: 96365 ×2; 96366 ×2; J7040; J7050; A4216

== ENCOUNTER 2017-07-04 07:32 | Outpatient (CLI) | payer BC, SELFPAY ==
[2017-07-04 07:34] VITALS: BP 137/72; PULSE 70; RESP 16; TEMP 37.1; O2SAT 97
[2017-07-04 18:48] VITALS: BP 127/74; PULSE 87; RESP 14; TEMP 36.7; O2SAT 97
[2017-07-04] MEDS: 0.9% NaCl PICC Flush IV (21:01)
== END 2017-07-04 21:07 | disposition home or self-care (01) ==
LOC: MEDOUTP 10:53 → MS3 18:23
PROVIDERS: Visit Provider Surgery
DX: L03.011 Cellulitis of right finger (principal); B95.7 Other staphylococcus as the cause of diseases classified elsewhere; L02.511 Cutaneous abscess of right hand
CPT/HCPCS: J7040; J7050; A4216

== ENCOUNTER 2017-07-05 07:23 | Outpatient (CLI) | payer BC, SELFPAY ==
[2017-07-05] MEDS: 0.9% NaCl IVPB Med Flush (250 mL) 15 ML IV (07:25)
[2017-07-05] MEDS: 0.9% NaCl PICC Flush IV ×2 (07:25→10:04)
[2017-07-05 07:30] VITALS: BP 117/75; PULSE 75; RESP 18; TEMP 36.7; O2SAT 98; BMI 28.2
[2017-07-05] MEDS: 0.9% NaCl PICC Flush 10 ML IV (20:41)
== END 2017-07-05 20:45 | disposition home or self-care (01) ==
LOC: MEDOUTP 07:23 → MS2 07:24 → MEDOUTP 18:22 → MS2 18:24
PROVIDERS: Visit Provider Surgery
DX: L03.011 Cellulitis of right finger (principal); B95.62 Methicillin resistant Staphylococcus aureus infection as the cause of diseases classified elsewhere
CPT/HCPCS: 96365 ×2; 96366 ×4; J7040; J7050; A4216

== ENCOUNTER 2017-07-06 06:14 | Outpatient (CLI) | payer BC, SELFPAY ==
[2017-07-06] MEDS: 0.9% NaCl PICC Flush IV ×3 (07:41→20:44)
[2017-07-06 07:45] VITALS: BP 116/71; PULSE 89; RESP 18; TEMP 37.3; O2SAT 100
[2017-07-06 10:20] VITALS: BMI 28.2
[2017-07-06 18:15] VITALS: BP 131/92; PULSE 89; RESP 18; TEMP 36.4; O2SAT 96
== END 2017-07-06 20:40 | disposition home or self-care (01) ==
LOC: MEDOUTP 06:14 → MS2 06:16
PROVIDERS: Visit Provider Surgery
DX: L03.011 Cellulitis of right finger (principal); B95.7 Other staphylococcus as the cause of diseases classified elsewhere; L02.511 Cutaneous abscess of right hand
CPT/HCPCS: J7040; A4216

== ENCOUNTER 2017-07-07 07:30 | Outpatient (CLI) | payer BC, SELFPAY ==
[2017-07-07 07:54] VITALS: BP 136/81; PULSE 81; RESP 16; TEMP 36.6; O2SAT 96
[2017-07-07 08:36] LABS: Erythrocyte Sedimentation Rate 4 mm/hr (0-15)
[2017-07-07 08:39] LABS: Absolute Lymphocyte Count 2.28 X10^3/ul (0.83-4.51); Absolute Neutrophil Count 6.6 X10^3/uL (2.0-7.7); Basophil# 0.08 X10^3/uL; Basophil% 0.8 % (0-1); Eosinophil# 0.76 X10^3/uL; Eosinophils% 7.3 % (0-5); Hematocrit 49.1 % (40-54); Hemoglobin 17.1 g/dl (13.0-16.5); Lymphocyte # 2.28 X10^3/ul (4.0); Mean Corp Hgb Conc 34.8 g/gl (32-36); Mean Corpuscular Hgb 32.1 pg (27.0-32.0); Mean Corpuscular Volume 92.1 fL (80-94); Mean Platelet Vol. 10.3 fl (6.2-12.0); Monocyte# 0.64 X10^3/uL; Monocyte% 6.2 % (0-10); Neutrophil # 6.58 X10^3/uL (2.7-7.7); Neutrophil % 63.3 % (47-70); POSITIVE COUNT NO; POSITIVE DIFFERENTIAL NO; POSITIVE MORPHOLOGY NO; Platelet Count 209 K/mm3 (150-450); RBC Distribution Width SD 40.3 fl (35.1-43.9); Red Blood Count 5.33 M/mm3 (4.6-6.2); White Blood Count 10.4 K/mm3 (4.4-11.0)
[2017-07-07 08:49] LABS: CRP 5.08 mg/L (0.0-3.0)
[2017-07-07 09:42] LABS: Vancomycin, Trough Level 11.6 ug/mL (5.0-15.0)
[2017-07-07] MEDS: 0.9% NaCl IVPB Med Flush (250 mL) 15 ML IV (18:30)
[2017-07-07 18:35] LABS: AST(SGOT) 21 U/L (15-37); Alanine Aminotransfer ALT/SGPT 51 U/L (16-61); Albumin, Serum 3.8 g/dL (3.2-5.0); Alkaline Phosphatase 109 U/L (45-117); Anion Gap 6 (5-15); BUN 11 mg/dL (7-18); BUN/Creat Ratio 10.5 RATIO (10-20); Calcium,Total 9.3 mg/dL (8.5-10.1); Chloride 106 mmol/L (98-107); Creatinine, Serum 1.05 mg/dL (0.70-1.30); EST Glomerular Filtration Rate 84 mL/min (>60); Est Glom Filt Rate - Afr Amer 101 mL/min (>60); Globulin 3.8 g/dL (2.2-4.2); Glucose 107 mg/dL (74-106); Potassium 3.9 mmol/L (3.5-5.1); Protein, Total 7.6 g/dL (6.4-8.2); Sodium Level 140 mmol/L (136-145)
[2017-07-07 18:38] VITALS: BP 123/75; PULSE 85; RESP 16; TEMP 37; O2SAT 100
[2017-07-07] MEDS: 0.9% NaCl PICC Flush IV (20:42)
== END 2017-07-07 21:10 | disposition home or self-care (01) ==
LOC: MEDOUTP 07:30 → MS2 18:23
PROVIDERS: Visit Provider Surgery
DX: L03.011 Cellulitis of right finger (principal); B95.7 Other staphylococcus as the cause of diseases classified elsewhere; L02.511 Cutaneous abscess of right hand
CPT/HCPCS: 96365; 96366; 80053; 80202; 85025; 85652; 86140; J7040; J7050; A4216

== ENCOUNTER 2017-07-08 08:10 | Outpatient (CLI) | payer BC, SELFPAY ==
[2017-07-08 08:16] VITALS: BP 137/83; PULSE 95; RESP 16; TEMP 36.9; O2SAT 97; BMI 29.5
[2017-07-08 18:40] VITALS: BP 126/78; PULSE 85; RESP 17; TEMP 36.9; O2SAT 98
[2017-07-08] MEDS: 0.9% NaCl PICC Flush IV ×2 (19:04→21:16)
== END 2017-07-08 21:25 | disposition home or self-care (01) ==
LOC: MEDOUTP 13:04 → PCU 18:39
PROVIDERS: Visit Provider Surgery
DX: L03.011 Cellulitis of right finger (principal); B95.7 Other staphylococcus as the cause of diseases classified elsewhere; L02.511 Cutaneous abscess of right hand
CPT/HCPCS: 96365; J7040; J7050; A4216

== ENCOUNTER 2017-07-09 07:15 | Outpatient (CLI) | payer BC, SELFPAY ==
[2017-07-09 07:24] VITALS: BP 138/82; PULSE 79; RESP 16; TEMP 37.2; O2SAT 98
[2017-07-09 18:38] VITALS: BP 144/78; PULSE 60; RESP 16; TEMP 37; O2SAT 96
[2017-07-09] MEDS: 0.9% NaCl PICC Flush IV (20:45)
== END 2017-07-09 20:52 | disposition home or self-care (01) ==
LOC: MEDOUTP 14:22 → PCU 18:17
PROVIDERS: Visit Provider Surgery
DX: L03.011 Cellulitis of right finger (principal); L02.511 Cutaneous abscess of right hand; B95.7 Other staphylococcus as the cause of diseases classified elsewhere
CPT/HCPCS: 96365 ×2; 96366 ×9; J7040; J7050; A4216

== ENCOUNTER 2017-07-10 07:20 | Outpatient (CLI) | payer SELFPAY ==
[2017-07-10 07:42] VITALS: BP 117/84; PULSE 89; RESP 18; TEMP 36.5; O2SAT 96; BMI 29.5
[2017-07-10 18:33] VITALS: BP 132/81; PULSE 89; RESP 18; TEMP 36.9; O2SAT 98
[2017-07-10] MEDS: 0.9% NaCl PICC Flush IV (21:13)
== END 2017-07-10 21:15 | disposition home or self-care (01) ==
LOC: MEDOUTP 07:40 → MS2 18:23
PROVIDERS: Visit Provider Surgery
DX: L03.011 Cellulitis of right finger (principal); L02.511 Cutaneous abscess of right hand; B95.7 Other staphylococcus as the cause of diseases classified elsewhere
CPT/HCPCS: 96365; 96366 ×12; J7040; J7050; A4216

== ENCOUNTER 2017-07-11 07:15 | Outpatient (CLI) | payer BC, SELFPAY ==
[2017-07-11 07:30] VITALS: BP 128/75; PULSE 87; RESP 16; TEMP 36.9; O2SAT 97
[2017-07-11 19:30] VITALS: BP 132/77; PULSE 92; RESP 18; TEMP 36.9; O2SAT 99
[2017-07-11] MEDS: 0.9% NaCl PICC Flush IV (21:00)
== END 2017-07-11 21:05 | disposition home or self-care (01) ==
LOC: MEDOUTP 07:15 → MS2 19:16
PROVIDERS: Visit Provider Surgery
DX: L03.011 Cellulitis of right finger (principal); B95.7 Other staphylococcus as the cause of diseases classified elsewhere
CPT/HCPCS: 96365 ×2; 96366 ×4; J7040; J7050; A4216

== ENCOUNTER 2017-07-12 07:29 | Outpatient (CLI) | payer BC, SELFPAY ==
[2017-07-12] MEDS: 0.9% NaCl IVPB Med Flush (250 mL) 15 ML IV ×2 (07:51→18:36)
[2017-07-12 07:52] VITALS: BP 118/77; PULSE 83; RESP 16; TEMP 36.9; O2SAT 99; BMI 29.5
[2017-07-12] MEDS: 0.9% NaCl PICC Flush 10 ML IV ×3 (07:52→21:10)
[2017-07-12 19:38] VITALS: BP 112/76; PULSE 80; RESP 18; TEMP 36.9; O2SAT 95
== END 2017-07-12 21:10 | disposition home or self-care (01) ==
LOC: MEDOUTP 07:30 → MS2 07:33
PROVIDERS: Visit Provider Surgery
DX: L03.011 Cellulitis of right finger (principal); B95.7 Other staphylococcus as the cause of diseases classified elsewhere
CPT/HCPCS: 96365 ×2; 96366 ×3; J7040; J7050; A4216

== ENCOUNTER 2017-07-13 07:42 | Outpatient (CLI) | payer BC, SELFPAY ==
[2017-07-13] MEDS: 0.9% NaCl PICC Flush 10 ML IV ×3 (07:30→18:24)
[2017-07-13 07:37] VITALS: BP 129/83; PULSE 89; RESP 18; TEMP 36.8; O2SAT 96
[2017-07-13 18:29] VITALS: BP 129/86; PULSE 112; RESP 18; TEMP 36.7; O2SAT 97
== END 2017-07-13 21:05 | disposition home or self-care (01) ==
LOC: MS2OUT 07:43 → MS2 07:44
PROVIDERS: Visit Provider Surgery
DX: L03.011 Cellulitis of right finger (principal); L02.511 Cutaneous abscess of right hand; B95.7 Other staphylococcus as the cause of diseases classified elsewhere
CPT/HCPCS: 96365; 96366 ×11; J7040; J7050; A4216

== ENCOUNTER 2017-07-14 07:19 | Outpatient (CLI) | payer BC, SELFPAY ==
[2017-07-14] MEDS: Alteplase 2 MG/2 ML Vial IV (07:45)
[2017-07-14 07:54] LABS: Erythrocyte Sedimentation Rate 3 mm/hr (0-15)
[2017-07-14 07:59] LABS: Absolute Lymphocyte Count 1.26 X10^3/ul (0.83-4.51); Basophil# 0.05 X10^3/uL; Basophil% 0.8 % (0-1); Eosinophil# 0.81 X10^3/uL; Eosinophils% 12.6 % (0-5); Hematocrit 43.8 % (40-54); Hemoglobin 14.2 g/dl (13.0-16.5); Lymphocyte # 1.26 X10^3/ul (4.0); Lymphocyte % 19.6 % (19-41); Mean Corp Hgb Conc 32.4 g/gl (32-36); Mean Corpuscular Hgb 30.5 pg (27.0-32.0); Mean Corpuscular Volume 94.2 fL (80-94); Mean Platelet Vol. 10.6 fl (6.2-12.0); Monocyte% 4.7 % (0-10); Neutrophil % 62.1 % (47-70); Platelet Count 159 K/mm3 (150-450); RBC Distribution Width CV 12.4 % (11.6-14.6); RBC Distribution Width SD 42.4 fl (35.1-43.9); Red Blood Count 4.65 M/mm3 (4.6-6.2); White Blood Count 6.4 K/mm3 (4.4-11.0)
[2017-07-14 08:01] LABS: POSITIVE COUNT NO; POSITIVE DIFFERENTIAL NO; POSITIVE MORPHOLOGY NO
[2017-07-14 08:06] VITALS: BP 116/72; PULSE 52; RESP 18; TEMP 36.6; O2SAT 97; BMI 29.5
[2017-07-14 08:15] LABS: Vancomycin, Trough Level 11.8 ug/mL (5.0-15.0)
[2017-07-14 08:20] LABS: ALB/GLOB Ratio 1.1 RATIO (0.9-2.4); AST(SGOT) 28 U/L (15-37); Alanine Aminotransfer ALT/SGPT 54 U/L (16-61); Albumin, Serum 3.4 g/dL (3.2-5.0); Alkaline Phosphatase 114 U/L (45-117); Anion Gap 8 (5-15); BUN 13 mg/dL (7-18); BUN/Creat Ratio 12.4 RATIO (10-20); Calcium,Total 8.6 mg/dL (8.5-10.1); Chloride 107 mmol/L (98-107); Creatinine, Serum 1.05 mg/dL (0.70-1.30); EST Glomerular Filtration Rate 84 mL/min (>60); Est Glom Filt Rate - Afr Amer 101 mL/min (>60); Globulin 3.1 g/dL (2.2-4.2); Glucose 218 mg/dL (74-106); Potassium 3.8 mmol/L (3.5-5.1); Protein, Total 6.5 g/dL (6.4-8.2); Sodium Level 141 mmol/L (136-145)
[2017-07-14 18:00] VITALS: BP 126/69; PULSE 83; RESP 16; TEMP 36.9; O2SAT 99
[2017-07-14] MEDS: 0.9% NaCl IVPB Med Flush (250 mL) 15 ML IV (18:53)
[2017-07-14] MEDS: 0.9% NaCl Peripheral Flush Adult/Peds IV ×2 (18:53→21:08)
== END 2017-07-14 21:23 | disposition home or self-care (01) ==
LOC: MEDOUTP 07:19 → MS2 18:22
PROVIDERS: Visit Provider Surgery
DX: L03.011 Cellulitis of right finger (principal); L02.511 Cutaneous abscess of right hand; B95.7 Other staphylococcus as the cause of diseases classified elsewhere
CPT/HCPCS: 96365; 96366 ×12; 96375; 36415; 36593; 80053; 80202; 85025; 85652; 86140; J2997; J7040; J7050; A4216

== ENCOUNTER 2017-07-15 07:22 | Outpatient (CLI) | payer BC, SELFPAY ==
[2017-07-15 07:34] VITALS: BP 133/75; PULSE 81; RESP 16; TEMP 37.1; O2SAT 98
[2017-07-15 18:33] VITALS: BP 130/85; PULSE 95; RESP 18; TEMP 36.7; O2SAT 96
[2017-07-15] MEDS: 0.9% NaCl PICC Flush IV ×2 (18:35→20:55)
== END 2017-07-15 20:58 | disposition home or self-care (01) ==
LOC: MEDOUTP 07:22 → MS3 18:16
PROVIDERS: Visit Provider Surgery
DX: L03.011 Cellulitis of right finger (principal); L02.511 Cutaneous abscess of right hand; B95.7 Other staphylococcus as the cause of diseases classified elsewhere
CPT/HCPCS: 96365; 96366 ×12; J7040; J7050; A4216

== ENCOUNTER 2017-07-16 07:15 | Outpatient (CLI) | payer BC, SELFPAY ==
[2017-07-16 07:30] VITALS: BP 116/69; PULSE 81; RESP 18; TEMP 36.6; O2SAT 97
[2017-07-16 18:36] VITALS: BP 121/80; PULSE 87; RESP 16; TEMP 36.9; O2SAT 97
[2017-07-16 21:15] VITALS: BP 132/72; PULSE 96; RESP 14; TEMP 36.7; O2SAT 99
== END 2017-07-16 21:13 | disposition home or self-care (01) ==
LOC: MEDOUTP 18:20 → MS2 18:21
PROVIDERS: Visit Provider Surgery
DX: L03.011 Cellulitis of right finger (principal); B95.7 Other staphylococcus as the cause of diseases classified elsewhere; L02.511 Cutaneous abscess of right hand
CPT/HCPCS: 96365; 96366 ×11; J7040; J7050; A4216

== ENCOUNTER 2017-07-17 07:30 | Outpatient (CLI) | payer BC, SELFPAY ==
[2017-07-17 07:33] VITALS: BP 125/76; PULSE 79; RESP 18; TEMP 36.6; O2SAT 97
[2017-07-17] MEDS: 0.9% NaCl PICC Flush 10 ML IV ×2 (18:40→21:10)
[2017-07-17 18:42] VITALS: BP 123/74; PULSE 90; RESP 18; O2SAT 98
== END 2017-07-17 21:11 | disposition home or self-care (01) ==
LOC: MEDOUTP 07:30 → MS2 18:25
PROVIDERS: Visit Provider Surgery
DX: L03.011 Cellulitis of right finger (principal); L02.511 Cutaneous abscess of right hand; B95.7 Other staphylococcus as the cause of diseases classified elsewhere
CPT/HCPCS: 96365; 96366 ×11; J7040; J7050; A4216

== ENCOUNTER 2017-07-18 07:10 | Outpatient (CLI) | payer BC, SELFPAY ==
[2017-07-18 07:20] VITALS: BP 127/81; PULSE 81; RESP 18; TEMP 36.4; O2SAT 97
[2017-07-18] MEDS: 0.9% NaCl IVPB Med Flush (250 mL) 15 ML IV (18:40)
[2017-07-18 18:53] VITALS: BP 116/73; PULSE 91; RESP 16; TEMP 37; O2SAT 98
[2017-07-18] MEDS: 0.9% NaCl PICC Flush IV (21:16)
== END 2017-07-18 21:17 | disposition home or self-care (01) ==
LOC: MEDOUTP 07:11 → MS3 18:22
PROVIDERS: Visit Provider Surgery
DX: L03.011 Cellulitis of right finger (principal); L02.511 Cutaneous abscess of right hand; B95.7 Other staphylococcus as the cause of diseases classified elsewhere
CPT/HCPCS: J7040; J7050; A4216

== ENCOUNTER 2017-07-19 07:22 | Outpatient (CLI) | payer BC, SELFPAY ==
[2017-07-19] MEDS: 0.9% NaCl IVPB Med Flush (250 mL) 15 ML IV ×2 (07:30→18:57)
[2017-07-19] MEDS: 0.9% NaCl Peripheral Flush Adult/Peds IV ×2 (07:30→10:01)
[2017-07-19 07:42] VITALS: BP 121/77; PULSE 76; RESP 14; TEMP 36.8; O2SAT 98
[2017-07-19 18:10] VITALS: BP 128/84; PULSE 81; RESP 14; TEMP 36.7; O2SAT 98
[2017-07-19] MEDS: 0.9% NaCl PICC Flush IV (18:57)
== END 2017-07-19 20:46 | disposition home or self-care (01) ==
LOC: MEDOUTP 07:22 → MS3 07:23 → MEDOUTP 18:14 → MS3 18:40
PROVIDERS: Visit Provider Surgery
DX: L03.011 Cellulitis of right finger (principal); B95.7 Other staphylococcus as the cause of diseases classified elsewhere; L02.511 Cutaneous abscess of right hand
CPT/HCPCS: 96365; 96366 ×11; J7040; J7050; A4216

== ENCOUNTER 2017-07-20 07:17 | Outpatient (CLI) | payer BC, SELFPAY ==
[2017-07-20 07:30] VITALS: BP 130/78; PULSE 83; RESP 16; TEMP 36.8; O2SAT 97
[2017-07-20] MEDS: 0.9% NaCl PICC Flush IV ×3 (07:30→20:38)
[2017-07-20] MEDS: 0.9% NaCl IVPB Med Flush (250 mL) 15 ML IV (07:30)
--- NOTE | 2017-07-20 09:31 | NURSING ---
Pt resting in recliner, denies needs at this time.
[2017-07-20 18:10] VITALS: BP 130/72; PULSE 72; RESP 18; TEMP 36.9; O2SAT 98
== END 2017-07-20 20:45 | disposition home or self-care (01) ==
LOC: MS3OUT 07:17 → MS3 07:18
PROVIDERS: Visit Provider Surgery
DX: L03.011 Cellulitis of right finger (principal); L02.511 Cutaneous abscess of right hand; B95.7 Other staphylococcus as the cause of diseases classified elsewhere
CPT/HCPCS: 96365; 96366 ×11; J7040; J7050; A4216

== ENCOUNTER 2017-07-21 07:16 | Outpatient (CLI) | payer BC, SELFPAY ==
[2017-07-21 07:37] VITALS: BP 121/70; PULSE 82; RESP 18; TEMP 36.8; O2SAT 98
[2017-07-21 08:01] LABS: Erythrocyte Sedimentation Rate 3 mm/hr (0-15)
[2017-07-21 08:04] LABS: Absolute Lymphocyte Count 1.67 X10^3/ul (0.83-4.51); Absolute Neutrophil Count 3.4 X10^3/uL (2.0-7.7); Basophil# 0.01 X10^3/uL; Basophil% 0.2 % (0-1); Eosinophil# 0.87 X10^3/uL; Eosinophils% 13.6 % (0-5); Hemoglobin 15.9 g/dl (13.0-16.5); Lymphocyte # 1.67 X10^3/ul (4.0); Lymphocyte % 26.1 % (19-41); Mean Corp Hgb Conc 35.3 g/gl (32-36); Mean Corpuscular Hgb 32.6 pg (27.0-32.0); Mean Corpuscular Volume 92.2 fL (80-94); Mean Platelet Vol. 11.1 fl (6.2-12.0); Monocyte# 0.41 X10^3/uL; Monocyte% 6.4 % (0-10); Neutrophil # 3.42 X10^3/uL (2.7-7.7); Neutrophil % 53.5 % (47-70); Platelet Count 172 K/mm3 (150-450); RBC Distribution Width CV 12.3 % (11.6-14.6); Red Blood Count 4.88 M/mm3 (4.6-6.2); White Blood Count 6.4 K/mm3 (4.4-11.0)
[2017-07-21 08:06] LABS: POSITIVE COUNT NO; POSITIVE DIFFERENTIAL NO; POSITIVE MORPHOLOGY NO
[2017-07-21 08:08] LABS: ALB/GLOB Ratio 1.1 RATIO (0.9-2.4); AST(SGOT) 17 U/L (15-37); Alanine Aminotransfer ALT/SGPT 50 U/L (16-61); Albumin, Serum 3.7 g/dL (3.2-5.0); Alkaline Phosphatase 121 U/L (45-117); Anion Gap 7 (5-15); BUN 11 mg/dL (7-18); BUN/Creat Ratio 9.5 RATIO (10-20); CRP < 2.90 mg/L (0.0-3.0); Calcium,Total 9.1 mg/dL (8.5-10.1); Chloride 104 mmol/L (98-107); Creatinine, Serum 1.16 mg/dL (0.70-1.30); EST Glomerular Filtration Rate 75 mL/min (>60); Est Glom Filt Rate - Afr Amer 90 mL/min (>60); Globulin 3.4 g/dL (2.2-4.2); Glucose 222 mg/dL (74-106); Potassium 3.7 mmol/L (3.5-5.1); Protein, Total 7.1 g/dL (6.4-8.2); Sodium Level 137 mmol/L (136-145)
[2017-07-21 18:49] VITALS: BP 123/78; PULSE 94; RESP 18; TEMP 36.9; O2SAT 96
== END 2017-07-21 21:00 | disposition home or self-care (01) ==
LOC: MEDOUTP 07:17 → MS3 18:38
PROVIDERS: Visit Provider Surgery
DX: L03.011 Cellulitis of right finger (principal); L02.511 Cutaneous abscess of right hand; B95.7 Other staphylococcus as the cause of diseases classified elsewhere
CPT/HCPCS: 96365; 96366 ×11; 36592; 80053; 85025; 85652; 86140; J7040; J7050; A4216

== ENCOUNTER → 2017-07-22 07:24 | Outpatient (CLI) | payer BC, SELFPAY ==
[2017-07-22 07:29] VITALS: BP 115/75; PULSE 90; RESP 18; TEMP 36.5; O2SAT 96
== END ==
LOC: MEDOUTP 07:25
PROVIDERS: Visit Provider Surgery
DX: L03.011 Cellulitis of right finger (principal); B95.7 Other staphylococcus as the cause of diseases classified elsewhere; L02.511 Cutaneous abscess of right hand
CPT/HCPCS: 96365; 96366 ×11; J7040; J7050; A4216